=== PATIENT | male | born 2000 | race Caucasian/White ===

== ENCOUNTER 2024-12-27 14:11 | Inpatient (IN) | payer MEDICAID ==
[~2024-12-27] VITALS: Ht 172.7 cm; Wt 97.5 kg
[2024-12-27] MEDS ORDERED: CEFEPIME 1GM IN DEXT 5% 50ML IV ONE (14:30)
[2024-12-27] MEDS ORDERED: HYDROMORPHONE HCL/PF 2MG/ML INJ IV ONE ×2 (14:30→15:45)
[2024-12-27] MEDS: DIPHENHYDRAMINE 50MG/ML VIAL IV ONE ×2 (14:53→16:29)
[2024-12-27] MEDS: HYDROMORPHONE HCL/PF 1MG/ML INJ IV SCH (14:53)
[2024-12-27] MEDS: SODIUM CHLORIDE 0.9% (SEPSIS BOLUS) IV ONE (14:57)
[2024-12-27 15:17] LABS: BASOPHILS % 0.4 % (0.0-2.0); EOSINOPHILS % 1.0 % (0.0-5.0); HEMATOCRIT. 25.7 % (42.0-52.0); HEMOGLOBIN. 7.9 g/dL (14.0-18.0); LYMPHOCYTES % 13.2 % (20.0-50.0); MEAN PLATELET VOLUME 8.5 fl (7.4-10.4); MONOCYTES % 6.4 % (2.0-8.0); NEUTROPHILS % 79.0 % (40.0-76.0); PLATELET 173 x1000/uL (130-400); RED BLOOD CELL COUNT 3.26 mill/uL (4.7-6.1); RED CELL DISTRIBUTION WIDTH 24.3 % (11.6-14.6)
[2024-12-27 15:19] LABS: ADD RBC MORPHOLOGY YES
[2024-12-27 15:24] LABS: INR 1.0
[2024-12-27] MEDS: CEFEPIME 1GM PREMIX 50ML IV SCH (15:28)
[2024-12-27 15:37] LABS: CREATININE 1.1 mg/dL (0.6-1.3); UREA NITROGEN BLOOD 12 mg/dL (9-23)
[2024-12-27 15:39] LABS: ASPARTATE AMINOTRANSFERASE 12 IU/L (<34); BILIRUBIN DIRECT 0.1 mg/dL (<=3.0); BILIRUBIN TOTAL 0.5 mg/dL (0.1-1.0); PROTEIN TOTAL 5.6 g/dL (6.0-8.3); TROPONIN I HIGH SENSITIVITY < 4 ng/L (3.0-53)
[2024-12-27] MEDS: METHYLPREDNISOLONE SOD SUCC 125MG/2ML (ACT-O-VIAL) IV ONE (15:45)
[2024-12-27 16:03] LABS: PLATELET ESTIMATE NORMAL
[2024-12-27] MEDS: HYDROMORPHONE HCL/PF 1MG/ML INJ IV NR (16:27)
[2024-12-27] MEDS: VANCOMYCIN 1G PREMIX 200 ML IV ONE (16:32)
[2024-12-27 18:52] VITALS: BP 138/92; PULSE 83; RESP 20; TEMP 37.2; O2SAT 98
[2024-12-27 20:00] VITALS: BP 123/81; PULSE 97; RESP 17; TEMP 37; O2SAT 95
[2024-12-27] MEDS ORDERED: IPRATROPIUM/ALBUTEROL 0.5-3(2.5)MG/3ML NEB HHN PRN (20:15)
[2024-12-27] MEDS ORDERED: ACETAMINOPHEN 325MG TABLET PO PRN (20:15)
[2024-12-27] MEDS ORDERED: CLONIDINE 0.1MG TABLET PO PRN (20:15)
[2024-12-27] MEDS ORDERED: GUAIFENESIN 200MG/10ML SUGAR FREE UDC PO PRN (20:15)
[2024-12-27] MEDS ORDERED: ONDANSETRON HCL 4MG/2ML INJ IV PRN (20:15)
[2024-12-27] MEDS ORDERED: DOCUSATE SODIUM 100MG CAPSULE PO PRN (20:15)
[2024-12-27] MEDS ORDERED: NALOXONE HCL 0.4MG/ML VIAL IV PRN (20:30)
[2024-12-27] MEDS: DIPHENHYDRAMINE 50MG/ML VIAL IV PRN (20:35)
[2024-12-27] MEDS: HYDROMORPHONE HCL/PF 1MG/ML INJ IV PRN (20:36)
[2024-12-27] MEDS ORDERED: CEFEPIME 1GM IN DEXT 5% 50ML IV SCH (20:45)
[2024-12-27] MEDS: POTASSIUM CHLORIDE 20MEQ TABLET SR PO SCH (23:01)
[2024-12-27] MEDS: PANTOPRAZOLE SODIUM 40 MG/VIAL IV SCH (23:01)
[2024-12-27 23:18] LABS: TROPONIN I HIGH SENSITIVITY < 4 ng/L (3.0-53)
[2024-12-27 23:20] LABS: CREATININE 1.0 mg/dL (0.6-1.3); UREA NITROGEN BLOOD 15 mg/dL (9-23)
[2024-12-27] MEDS: LACTATED RINGERS 1,000 ML IV ONE (23:20)
[2024-12-27] MEDS: MAGNESIUM 1 G PREMIX 100 ML IV SCH (23:53)
[2024-12-28] VITALS (8 sets, daily range): BP systolic 119–141; BP diastolic 73–95; PULSE 66–97; RESP 16–20; TEMP 36.3–37; O2SAT 97–99
[2024-12-28] MEDS: CEFEPIME 2,000 MG in DEXT 5% WATER 100 ML IV SCH (01:22)
[2024-12-28] MEDS: DIPHENHYDRAMINE 50MG/ML VIAL IV PRN (03:17)
[2024-12-28] MEDS: VANCOMYCIN 1G PREMIX 200 ML IV SCH (03:32)
[2024-12-28] MEDS ORDERED: NON FORMULARY MED XX SCH (05:30)
[2024-12-28] MEDS ORDERED: VANCOMYCIN 750MG PREMIX 150 ML IV SCH (06:00)
[2024-12-28] MEDS ORDERED: IRON SUCROSE COMPLEX 100 MG/5 ML ML IV NR (06:45)
[2024-12-28] MEDS: IPRATROPIUM/ALBUTEROL 0.5-3(2.5)MG/3ML NEB HHN SCH (08:34)
[2024-12-28 08:40] LABS: CLARITY URINE CLEAR (CLEAR); COLOR URINE YELLOW (YELLOW); GLUCOSE URINE TRACE (NEGATIVE); KETONES URINE NEGATIVE (NEGATIVE); LEUKOCYTE ESTERASE URINE NEGATIVE (NEGATIVE); NITRITE URINE NEGATIVE (NEGATIVE); OCCULT BLOOD URINE NEGATIVE (NEGATIVE); PH URINE 7.0 (4.5-8.0); PROTEIN URINE NEGATIVE (NEGATIVE); SPECIFIC GRAVITY URINE 1.016 (1.005-1.030); UROBILINOGEN URINE 0.2 E.U./dL (0.2-1.0)
[2024-12-28] MEDS ORDERED: IRON SUCROSE COMPLEX 100 MG/5 ML ML IV SCH (09:00)
[2024-12-28 09:01] LABS: *AMPHETAMINES SCREEN URINE NEGATIVE (NEGATIVE)
[2024-12-28 09:02] LABS: *BARBITURATES SCREEN URINE NEGATIVE (NEGATIVE); *BENZODIAZEPINES SCREEN URINE NEGATIVE (NEGATIVE); *COCAINE SCREEN URINE NEGATIVE (NEGATIVE); CANNABINOID URINE SCREEN NEGATIVE (NEGATIVE); ECSTASY MDMA SCREEN URINE NEGATIVE (NEGATIVE); METHADONE URINE SCREEN NEGATIVE (NEGATIVE); OPIATES URINE SCREEN PRESUMPTIVE POSITIVE (NEGATIVE); PHENCYCLIDINE URINE SCREEN NEGATIVE (NEGATIVE)
[2024-12-28 09:26] LABS: MUCUS URINE TRACE /lpf (NONE/TRACE)
[2024-12-28 09:27] LABS: BACTERIA URINE NONE SEEN; RBC URINE NONE SEEN /hpf (0-2); SQUAMOUS EPITHELIAL CELL URINE NONE SEEN /lpf (RARE/1+); WBC URINE 0-2 /hpf (0-2)
[2024-12-28] MEDS: VANCOMYCIN 1.25GM/250ML 250 ML IV SCH (11:44)
[2024-12-28] MEDS: IRON SUCROSE COMPLEX 100 MG/5 ML ML IV SCH (21:37)
[2024-12-29] VITALS (8 sets, daily range): BP systolic 116–133; BP diastolic 75–90; PULSE 71–106; RESP 17–22; TEMP 34.9–36.5; O2SAT 96–100
[2024-12-29] MEDS: HYDROMORPHONE HCL/PF 2MG/ML INJ IV NR (02:32)
[2024-12-29 06:55] LABS: CREATININE 0.9 mg/dL (0.6-1.3); UREA NITROGEN BLOOD 17 mg/dL (9-23)
[2024-12-29 07:07] LABS: BASOPHILS % 0.1 % (0.0-2.0); EOSINOPHILS % 0.8 % (0.0-5.0); HEMATOCRIT. 25.1 % (42.0-52.0); HEMOGLOBIN. 7.9 g/dL (14.0-18.0); LYMPHOCYTES % 11.0 % (20.0-50.0); MEAN PLATELET VOLUME 8.9 fl (7.4-10.4); MONOCYTES % 9.1 % (2.0-8.0); NEUTROPHILS % 79.0 % (40.0-76.0); PLATELET 175 x1000/uL (130-400); RED BLOOD CELL COUNT 3.24 mill/uL (4.7-6.1); RED CELL DISTRIBUTION WIDTH 24.6 % (11.6-14.6)
[2024-12-29] MEDS ORDERED: NALOXONE HCL 0.4MG/ML VIAL IV PRN (09:45)
[2024-12-29] MEDS ORDERED: HYDROMORPHONE HCL/PF 1MG/ML INJ IV PRN (09:45)
[2024-12-29] MEDS: HYDROMORPHONE HCL/PF 2MG/ML INJ IV PRN (10:45)
[2024-12-29] MEDS: FERROUS SULFATE 325MG TABLET PO SCH (11:28)
[2024-12-29] MEDS: DIPHENHYDRAMINE 50MG/ML VIAL IV PRN (12:17)
[2024-12-29] MEDS: VANCOMYCIN 1.5GM/250ML 250 ML IV SCH (17:37)
[2024-12-29] MEDS ORDERED: VANCOMYCIN 1.5GM PMX (XELLIA) 300 ML IV SCH (18:00)
[2024-12-30] VITALS: BP 130/74; PULSE 104; RESP 16; TEMP 36.2; O2SAT 97
[2024-12-30 04:00] VITALS: BP 111/60; PULSE 89; RESP 17; TEMP 36.5; O2SAT 97
[2024-12-30 08:14] VITALS: PULSE 78; RESP 20
[2024-12-30 12:00] VITALS: BP 117/74; PULSE 96; RESP 18; TEMP 36.7; O2SAT 96
[2024-12-30] MEDS ORDERED: FERR-63 PO (14:24)
[2024-12-30 16:00] VITALS: BP 120/73; PULSE 94; RESP 18; TEMP 36.7; O2SAT 98
[2024-12-30 20:00] VITALS: BP 119/75; PULSE 111; RESP 16; TEMP 36.5; O2SAT 100
[2024-12-31] VITALS (8 sets, daily range): BP systolic 123–134; BP diastolic 68–86; PULSE 60–111; RESP 17–18; TEMP 36.1–37.4; O2SAT 94–99
[2024-12-31 03:35] LABS: CREATININE 1.1 mg/dL (0.6-1.3); UREA NITROGEN BLOOD 15 mg/dL (9-23)
[2024-12-31] MEDS ORDERED: VANCOMYCIN 1.5GM PMX (XELLIA) 300 ML IV SCH (06:00)
[2024-12-31] MEDS: VANCOMYCIN 1G PREMIX 200 ML IV SCH (12:02)
[2024-12-31] MEDS: VANCOMYCIN 500MG PREMIX 100 ML IV SCH (21:05)
[2025-01-01] VITALS: BP 126/76; PULSE 104; RESP 16; TEMP 35; O2SAT 97
[2025-01-01] MEDS: ACETAMINOPHEN 325MG TABLET PO PRN (03:57)
[2025-01-01 04:00] VITALS: BP 129/79; PULSE 65; RESP 18; TEMP 38.4; O2SAT 97
[2025-01-01 08:00] VITALS: BP 133/69; PULSE 104; RESP 18; TEMP 36.6; O2SAT 98
[2025-01-01 08:30] VITALS: PULSE 108; RESP 20
[2025-01-01 10:08] VITALS: BP 133/69; PULSE 104; TEMP 97.8; O2SAT 98
[2025-01-01 10:10] VITALS: BP 151/77; PULSE 122; RESP 18
[2025-01-01] MEDS ORDERED: VANCOMYCIN 1.5GM PMX (XELLIA) 300 ML IV SCH (21:00)
[2025-01-04] MEDS ORDERED: HYDR-4009 PO ×2 (10:50→18:32)
[2025-01-04] MEDS ORDERED: DIPH50CA41 PO (12:18)
[2025-01-04] MEDS ORDERED: TOPUD MT (14:27)
[2025-01-04] MEDS ORDERED: TOPUD PO (14:28)
[2025-01-04] MEDS ORDERED: HYDR-4009 MT (18:14)
== END 2025-01-01 11:45 | disposition home or self-care (01) | DRG 720 ==
LOC: ER 14:11 → EDBEDREQTM 17:29 → EDBEDREQ 17:29 → ENRESERV 17:54 → 5WST 18:30
PROVIDERS: ADMIT Internal Medicine; ATTEND Internal Medicine
PROC: 0JBP0ZZ Excision of Left Lower Leg Subcutaneous Tissue and Fascia, Open Approach (ICD-10-PCS; principal; 2024-12-29)
DX: A41.9 Sepsis, unspecified organism (principal); C78.01 Secondary malignant neoplasm of right lung; C78.5 Secondary malignant neoplasm of large intestine and rectum; J18.9 Pneumonia, unspecified organism; E87.0 Hyperosmolality and hypernatremia; K92.2 Gastrointestinal hemorrhage, unspecified; D50.9 Iron deficiency anemia, unspecified; C62.92 Malignant neoplasm of left testis, unspecified whether descended or undescended; E87.6 Hypokalemia; R73.9 Hyperglycemia, unspecified; G89.4 Chronic pain syndrome; F11.20 Opioid dependence, uncomplicated; Y95 Nosocomial condition; L29.9 Pruritus, unspecified; S80.812A Abrasion, left lower leg, initial encounter; S80.811A Abrasion, right lower leg, initial encounter; X58.XXXA Exposure to other specified factors, initial encounter; T45.1X5A Adverse effect of antineoplastic and immunosuppressive drugs, initial encounter; T45.515A Adverse effect of anticoagulants, initial encounter; Z85.47 Personal history of malignant neoplasm of testis; Z92.21 Personal history of antineoplastic chemotherapy; Z85.038 Personal history of other malignant neoplasm of large intestine; Z90.49 Acquired absence of other specified parts of digestive tract; Z86.711 Personal history of pulmonary embolism; Z86.718 Personal history of other venous thrombosis and embolism; Z92.3 Personal history of irradiation; Y92.89 Other specified places as the place of occurrence of the external cause; Y93.89 Activity, other specified; Y99.8 Other external cause status
CPT/HCPCS: 36415; 71045; 80048; 80076; 80202; 80305; 81003; 82550; 82728; 83036; 83540; 83550; 83605; 83735; 83880; 84145; 84484; 85025; 85379; 86850; 86900; 87070; 93005; 93970; 94070; 94640; 94664; 94760; 97165; 98960; 99291; A4606; J0692; J1171; J1200; J2470; J2919; J3370; J3475; J7030; J7060

== ENCOUNTER → 2025-01-09 | Emergency (ER) | payer MEDICAID ==
[~2025-01-09] VITALS: Ht 172.7 cm; Wt 91.0 kg
[~2025-01-09] MED LIST: DIPH50CA41 PO; FERR-63 PO; HYDR-4009 PO; HYDROMORPHONE HCL/PF 2MG/ML INJ IV ONE; TOPUD PO; VANCOMYCIN 1G PREMIX 200 ML IV ONE
[2025-01-09 14:25] VITALS: O2SAT 100
[2025-01-09] MEDS: SODIUM CHLORIDE 0.9% (SEPSIS BOLUS) IV ONE (15:00)
[2025-01-09] MEDS: DIPHENHYDRAMINE 50MG/ML VIAL IV ONE ×2 (15:29→17:46)
[2025-01-09] MEDS: PIPERACILLIN/TAZO 3.375G/50ML 50 ML IV ONE (15:29)
[2025-01-09] MEDS: HYDROMORPHONE HCL/PF 1MG/ML INJ IV SCH (15:30)
[2025-01-09 15:40] LABS: BASOPHILS % 0.5 % (0.0-2.0); EOSINOPHILS % 0.1 % (0.0-5.0); HEMATOCRIT. 23.7 % (42.0-52.0); HEMOGLOBIN. 7.5 g/dL (14.0-18.0); LYMPHOCYTES % 11.2 % (20.0-50.0); MEAN PLATELET VOLUME 7.7 fl (7.4-10.4); MONOCYTES % 10.0 % (2.0-8.0); NEUTROPHILS % 78.2 % (40.0-76.0); PLATELET 173 x1000/uL (130-400); RED BLOOD CELL COUNT 2.93 mill/uL (4.7-6.1); RED CELL DISTRIBUTION WIDTH 26.1 % (11.6-14.6)
[2025-01-09 15:42] LABS: ADD RBC MORPHOLOGY YES
[2025-01-09 15:47] LABS: INR 1.0
[2025-01-09 15:56] LABS: CREATININE 1.0 mg/dL (0.6-1.3); TROPONIN I HIGH SENSITIVITY < 4 ng/L (3.0-53); UREA NITROGEN BLOOD 22 mg/dL (9-23)
[2025-01-09 15:58] LABS: ASPARTATE AMINOTRANSFERASE 12 IU/L (<34); BILIRUBIN DIRECT < 0.1 mg/dL (<=3.0)
[2025-01-09 15:59] LABS: BILIRUBIN TOTAL 0.3 mg/dL (0.1-1.0); PROTEIN TOTAL 5.8 g/dL (6.0-8.3)
[2025-01-09 16:38] LABS: PLATELET ESTIMATE NORMAL
[2025-01-09 16:49] VITALS: TEMP 36.7; O2SAT 100
[2025-01-09 17:46] VITALS: BP 133/85; PULSE 76; RESP 15
[2025-01-09] MEDS: HYDROMORPHONE HCL/PF 2MG/ML INJ IV ONE (17:46)
== END | disposition left against medical advice (07) ==
LOC: ER 14:18 → EDBEDREQ 17:03 → ENRESERV 17:08 → CANBEDREQ 17:29
DX: C78.00 Secondary malignant neoplasm of unspecified lung (principal); G89.4 Chronic pain syndrome; D64.9 Anemia, unspecified; C62.90 Malignant neoplasm of unspecified testis, unspecified whether descended or undescended; Z88.6 Allergy status to analgesic agent; Z88.5 Allergy status to narcotic agent; Z88.8 Allergy status to other drugs, medicaments and biological substances; Z79.899 Other long term (current) drug therapy; Z98.890 Other specified postprocedural states
CPT/HCPCS: 80076; 80048; 83880; 83605; 85025; 85610; 86850; 86900; 86901; 87040; 84484; 36415; 84145; 71045; 93005; 96365; 96375; 96376; 99291; J1200; J2543; J1171; J7030; Z7610

== ENCOUNTER 2025-01-13 14:57 | Inpatient (IN) | payer MEDICAID ==
[~2025-01-13] VITALS: Ht 172.7 cm; Wt 92.1 kg
[~2025-01-13 14:57] MED LIST changes: -HYDROMORPHONE HCL/PF 2MG/ML INJ IV ONE; -VANCOMYCIN 1G PREMIX 200 ML IV ONE
[2025-01-13] MEDS ORDERED: HYDROMORPHONE HCL/PF 2MG/ML INJ IV ONE (15:15)
[2025-01-13 15:45] LABS: BASOPHILS % 0.5 % (0.0-2.0); EOSINOPHILS % 0.3 % (0.0-5.0); HEMATOCRIT. 25.2 % (42.0-52.0); HEMOGLOBIN. 7.9 g/dL (14.0-18.0); LYMPHOCYTES % 9.6 % (20.0-50.0); MEAN PLATELET VOLUME 7.3 fl (7.4-10.4); MONOCYTES % 8.6 % (2.0-8.0); NEUTROPHILS % 81.0 % (40.0-76.0); PLATELET 188 x1000/uL (130-400); RED BLOOD CELL COUNT 3.08 mill/uL (4.7-6.1); RED CELL DISTRIBUTION WIDTH 27.2 % (11.6-14.6)
[2025-01-13 15:47] LABS: ADD RBC MORPHOLOGY YES
[2025-01-13] MEDS: HYDROMORPHONE HCL/PF 1MG/ML INJ IV SCH (15:53)
[2025-01-13 16:01] LABS: CREATININE 1.1 mg/dL (0.6-1.3); UREA NITROGEN BLOOD 17 mg/dL (9-23)
[2025-01-13 16:03] LABS: TROPONIN I HIGH SENSITIVITY < 4 ng/L (3.0-53)
[2025-01-13] MEDS: DIPHENHYDRAMINE 50MG/ML VIAL IV ONE (16:04)
[2025-01-13 16:23] LABS: PLATELET ESTIMATE NORMAL
[2025-01-13] MEDS: INSULIN LISPRO 100 UNITS/ML SUBCUT SCH (17:20)
[2025-01-13] MEDS ORDERED: ACETAMINOPHEN 325MG TABLET PO PRN ×2 (17:30)
[2025-01-13] MEDS ORDERED: IPRATROPIUM/ALBUTEROL 0.5-3(2.5)MG/3ML NEB HHN PRN (17:30)
[2025-01-13] MEDS ORDERED: ENOXAPARIN 40MG/0.4ML SYR SUBCUT SCH (17:30)
[2025-01-13] MEDS ORDERED: HYDROMORPHONE HCL/PF 2MG/ML INJ IV PRN (17:30)
[2025-01-13] MEDS ORDERED: ONDANSETRON HCL 4MG/2ML INJ IV PRN (17:30)
[2025-01-13] MEDS ORDERED: DEXTROSE 50% WATER 50ML SYRINGE IV PRN (17:30)
[2025-01-13] MEDS ORDERED: CLONIDINE 0.1MG TABLET PO PRN (17:30)
[2025-01-13] MEDS ORDERED: NALOXONE HCL 0.4MG/ML VIAL IV PRN (17:45)
[2025-01-13] MEDS: DIPHENHYDRAMINE 50MG/ML VIAL IV PRN (18:00)
[2025-01-13] MEDS: POTASSIUM CHLORIDE 20MEQ/PACKET PO SCH (18:01)
[2025-01-13] MEDS: HYDROMORPHONE HCL/PF 2MG/ML INJ IV PRN (18:01)
[2025-01-13] MEDS: DEXTROSE 5% WATER 1,000 ML IV SCH (18:02)
[2025-01-13 18:35] VITALS: BP 127/82; PULSE 85; RESP 15; TEMP 36.8628
[2025-01-13 20:00] VITALS: BP 118/79; PULSE 86; RESP 16; TEMP 36.9; O2SAT 98
[2025-01-13] MEDS: BLOOD SUGAR DIAGNOSTIC STRIP TEST SCH (21:00)
[2025-01-14] VITALS: BP 121/84; PULSE 89; RESP 18; TEMP 36.8; O2SAT 99
[2025-01-14 03:45] LABS: TROPONIN I HIGH SENSITIVITY < 4 ng/L (3.0-53)
[2025-01-14 04:00] VITALS: BP 111/75; PULSE 77; RESP 16; TEMP 36.8; O2SAT 97
[2025-01-14 07:27] LABS: BASOPHILS % 0.4 % (0.0-2.0); EOSINOPHILS % 1.6 % (0.0-5.0); HEMATOCRIT. 24.6 % (42.0-52.0); HEMOGLOBIN. 7.6 g/dL (14.0-18.0); LYMPHOCYTES % 11.6 % (20.0-50.0); MEAN PLATELET VOLUME 7.7 fl (7.4-10.4); MONOCYTES % 8.7 % (2.0-8.0); NEUTROPHILS % 77.7 % (40.0-76.0); PLATELET 175 x1000/uL (130-400); RED BLOOD CELL COUNT 3.01 mill/uL (4.7-6.1); RED CELL DISTRIBUTION WIDTH 26.7 % (11.6-14.6)
[2025-01-14 07:33] LABS: CREATININE 0.7 mg/dL (0.6-1.3); UREA NITROGEN BLOOD 15 mg/dL (9-23)
[2025-01-14 08:00] VITALS: BP 112/79; PULSE 86; RESP 18; TEMP 36.8; O2SAT 94
[2025-01-14] MEDS: POTASSIUM CHLORIDE 20MEQ/PACKET PO SCH (08:10)
[2025-01-14 12:00] VITALS: BP 119/81; PULSE 90; RESP 15; TEMP 36.7; O2SAT 95
[2025-01-14 16:00] VITALS: BP 120/85; PULSE 95; RESP 18; TEMP 36.7; O2SAT 99
[2025-01-14] MEDS: DIPHENHYDRAMINE 50MG/ML VIAL IV PRN (19:49)
[2025-01-14] MEDS: HYDROMORPHONE HCL/PF 2MG/ML INJ IV PRN (19:51)
[2025-01-14 20:00] VITALS: BP 123/75; PULSE 90; RESP 17; TEMP 37; O2SAT 98
[2025-01-15] VITALS: BP 117/77; PULSE 92; RESP 20; TEMP 36.8; O2SAT 92
[2025-01-15 04:00] VITALS: BP 120/76; PULSE 90; RESP 18; TEMP 36.8; O2SAT 96
[2025-01-15 08:00] VITALS: BP 124/87; PULSE 97; RESP 15; TEMP 36.9; O2SAT 95
[2025-01-15 08:04] VITALS: BP 124/87; PULSE 97; TEMP 98.4; O2SAT 95
[2025-01-15 12:11] VITALS: BP 113/80; PULSE 95; RESP 17
[2025-01-15] MEDS: SILVER SULFADIAZINE 1% CREAM 50GM TOP SCH (12:11)
== END 2025-01-15 13:03 | disposition home or self-care (01) | DRG 240 ==
LOC: ER 14:57 → EDBEDREQ 16:38 → EDBEDREQTM 16:38 → ENRESERV 17:02 → 3WST 17:16
PROVIDERS: ADMIT Hospitalist; ATTEND Hospitalist
DX: C18.9 Malignant neoplasm of colon, unspecified (principal); E87.0 Hyperosmolality and hypernatremia; C78.01 Secondary malignant neoplasm of right lung; G62.0 Drug-induced polyneuropathy; D50.9 Iron deficiency anemia, unspecified; F11.20 Opioid dependence, uncomplicated; C62.92 Malignant neoplasm of left testis, unspecified whether descended or undescended; E87.6 Hypokalemia; G89.4 Chronic pain syndrome; L29.9 Pruritus, unspecified; T45.1X5A Adverse effect of antineoplastic and immunosuppressive drugs, initial encounter; R06.02 Shortness of breath; Z85.038 Personal history of other malignant neoplasm of large intestine; Z85.47 Personal history of malignant neoplasm of testis; Z86.711 Personal history of pulmonary embolism; Z86.718 Personal history of other venous thrombosis and embolism; Z88.6 Allergy status to analgesic agent; Z90.49 Acquired absence of other specified parts of digestive tract; Z92.3 Personal history of irradiation; Z91.041 Radiographic dye allergy status; Y92.89 Other specified places as the place of occurrence of the external cause
CPT/HCPCS: 36415; 71045; 80048; 82962; 83036; 83880; 84484; 85025; 93005; 99285; A4606; J1171; J1200; J7070

== ENCOUNTER 2025-02-08 13:15 | Inpatient (IN) | payer SELFPAY ==
[~2025-02-08] VITALS: Ht 172.7 cm; Wt 89.8 kg
[2025-02-08 07:30] VITALS: BP 123/86; PULSE 90; RESP 18; TEMP 36.6404
[2025-02-08 13:19] VITALS: O2SAT 98
[2025-02-08 15:23] LABS: CREATININE 0.8 mg/dL (0.6-1.3); HEMATOCRIT. 29.2 % (42.0-52.0); HEMOGLOBIN. 9.1 g/dL (14.0-18.0); MEAN PLATELET VOLUME 7.9 fl (7.4-10.4); PLATELET 210 x1000/uL (130-400); RED BLOOD CELL COUNT 3.62 mill/uL (4.7-6.1); RED CELL DISTRIBUTION WIDTH 24.9 % (11.6-14.6); TROPONIN I HIGH SENSITIVITY < 4 ng/L (3.0-53); UREA NITROGEN BLOOD 19 mg/dL (9-23)
[2025-02-08 15:25] LABS: ASPARTATE AMINOTRANSFERASE 15 IU/L (<34); BILIRUBIN DIRECT < 0.1 mg/dL (<=3.0); BILIRUBIN TOTAL 0.4 mg/dL (0.1-1.0); PROTEIN TOTAL 5.6 g/dL (6.0-8.3)
[2025-02-08 15:27] LABS: INR 0.9
[2025-02-08] MEDS: SODIUM CHLORIDE 0.9% 1,000 ML IV ONE (16:13)
[2025-02-08] MEDS: HYDROMORPHONE HCL/PF 2MG/ML INJ IV ONE (16:16)
[2025-02-08 16:38] LABS: BAND% 4.0 % (1.0-6.0); EOSINOPHILS % MANUAL 1.0 % (0.0-5.0); LYMPHOCYTES % MANUAL 9.0 % (20.0-50.0); MONOCYTES % MANUAL 12.0 % (2.0-8.0); NEUTROPHILS % MANUAL 74.0 % (45.0-75.0)
[2025-02-08 16:39] LABS: PLATELET ESTIMATE NORMAL
[2025-02-08] MEDS ORDERED: CLONIDINE 0.1MG TABLET PO PRN (17:15)
[2025-02-08] MEDS ORDERED: ONDANSETRON HCL 4MG/2ML INJ IV PRN (17:15)
[2025-02-08] MEDS ORDERED: DOCUSATE SODIUM 100MG CAPSULE PO PRN (17:15)
[2025-02-08] MEDS ORDERED: ACETAMINOPHEN 650MG/20.3ML UDC GT PRN ×2 (17:15)
[2025-02-08] MEDS ORDERED: IPRATROPIUM/ALBUTEROL 0.5-3(2.5)MG/3ML NEB HHN PRN (17:15)
[2025-02-08] MEDS ORDERED: MAGNESIUM/ALUMINUM HYDROXIDE/SIMETHICONE 30ML UDC PO PRN (17:15)
[2025-02-08] MEDS ORDERED: GUAIFENESIN 200MG/10ML SUGAR FREE UDC PO PRN (17:15)
[2025-02-08] MEDS ORDERED: ACETAMINOPHEN 325MG TABLET PO PRN (17:45)
[2025-02-08] MEDS ORDERED: FAMOTIDINE 20MG TABLET PO SCH (18:00)
[2025-02-08] MEDS ORDERED: METHYLPREDNISOLONE SOD SUCC 40MG/ML (ACT-O-VIAL) IV SCH (18:00)
[2025-02-08] MEDS ORDERED: NALOXONE HCL 0.4MG/ML VIAL IV PRN (18:00)
[2025-02-08] MEDS ORDERED: IPRATROPIUM/ALBUTEROL 0.5-3(2.5)MG/3ML NEB HHN SCH (18:00)
[2025-02-08 19:06] LABS: FOLIC ACID (FOLATE) SERUM 17.13 ng/mL (>5.38); VITAMIN B12 SERUM 220 pg/mL (211-911)
[2025-02-08 19:30] VITALS: BP 123/86; PULSE 90; RESP 18; TEMP 36.6404
[2025-02-08 19:38] LABS: PHOSPHORUS 2.4 mg/dL (2.5-4.9)
[2025-02-08] MEDS: HYDROMORPHONE HCL/PF 1MG/ML INJ IV PRN (19:46)
[2025-02-08] MEDS: DIPHENHYDRAMINE 50MG/ML VIAL IV PRN (19:59)
[2025-02-09] VITALS: BP 105/70; PULSE 90; RESP 20; TEMP 36.8; O2SAT 98
[2025-02-09 00:45] LABS: CREATINE KINASE MB FRACTION < 0.5 ng/mL (0.5-3.6); TROPONIN I HIGH SENSITIVITY < 4 ng/L (3.0-53)
[2025-02-09 04:00] VITALS: BP 103/66; PULSE 94; RESP 20; TEMP 36.8; O2SAT 100
[2025-02-09 08:00] VITALS: BP 122/80; PULSE 89; RESP 18; TEMP 37.2; O2SAT 98
[2025-02-09] MEDS: FERROUS SULFATE 325MG TABLET PO SCH (08:10)
[2025-02-09] MEDS: PANTOPRAZOLE SODIUM 40 MG/VIAL IV SCH (08:10)
[2025-02-09 11:31] LABS: HEMATOCRIT. 27.9 % (42.0-52.0); HEMOGLOBIN. 8.9 g/dL (14.0-18.0); MEAN PLATELET VOLUME 8.1 fl (7.4-10.4); PLATELET 192 x1000/uL (130-400); RED BLOOD CELL COUNT 3.52 mill/uL (4.7-6.1); RED CELL DISTRIBUTION WIDTH 24.4 % (11.6-14.6)
[2025-02-09 12:00] VITALS: BP 115/74; PULSE 76; RESP 17; TEMP 36.4; O2SAT 97
[2025-02-09 12:13] LABS: CREATINE KINASE MB FRACTION < 0.5 ng/mL (0.5-3.6); CREATININE 0.9 mg/dL (0.6-1.3); TRIGLYCERIDE 227 mg/dL (0-150); TROPONIN I HIGH SENSITIVITY < 4 ng/L (3.0-53); UREA NITROGEN BLOOD 17 mg/dL (9-23)
[2025-02-09 12:14] LABS: LDL CHOLESTEROL 135 mg/dL (5-100)
[2025-02-09 12:18] LABS: T4 FREE 1.12 ng/dL (0.89-1.76)
[2025-02-09 13:24] VITALS: BP 122/76; PULSE 81; RESP 18; TEMP 97.8
[2025-02-09 14:20] VITALS: BP 116/68; PULSE 88; RESP 18
[2025-02-09] MEDS: POTASSIUM CHLORIDE 20MEQ TABLET SR PO SCH (14:20)
[2025-02-09 18:16] LABS: EOSINOPHILS % MANUAL 3.0 % (0.0-5.0); LYMPHOCYTES % MANUAL 8.0 % (20.0-50.0); MONOCYTES % MANUAL 7.0 % (2.0-8.0); NEUTROPHILS % MANUAL 82.0 % (45.0-75.0); PLATELET ESTIMATE NORMAL
[2025-02-09 19:51] LABS: ASPARTATE AMINOTRANSFERASE 17 IU/L (<34); BILIRUBIN DIRECT 0.1 mg/dL (<=3.0); BILIRUBIN TOTAL 0.5 mg/dL (0.1-1.0); PROTEIN TOTAL 5.5 g/dL (6.0-8.3)
== END 2025-02-09 15:24 | disposition home or self-care (01) | DRG 144 ==
LOC: ER 13:15 → EDBEDREQTM 17:07 → EDBEDREQ 17:07 → 8WST 19:21
PROVIDERS: ADMIT Hospitalist; ATTEND Hospitalist
DX: J70.4 Drug-induced interstitial lung disorders, unspecified (principal); C78.01 Secondary malignant neoplasm of right lung; C78.5 Secondary malignant neoplasm of large intestine and rectum; D64.9 Anemia, unspecified; E66.9 Obesity, unspecified; C62.90 Malignant neoplasm of unspecified testis, unspecified whether descended or undescended; G89.4 Chronic pain syndrome; T78.40XA Allergy, unspecified, initial encounter; T45.1X5A Adverse effect of antineoplastic and immunosuppressive drugs, initial encounter; Y92.89 Other specified places as the place of occurrence of the external cause; Z86.718 Personal history of other venous thrombosis and embolism; Z90.2 Acquired absence of lung [part of]; Z88.6 Allergy status to analgesic agent; Z91.041 Radiographic dye allergy status; Z88.5 Allergy status to narcotic agent; Z92.3 Personal history of irradiation; Z68.30 Body mass index [BMI] 30.0-30.9, adult
CPT/HCPCS: 36415; 71045; 80048; 80061; 80076; 82550; 82553; 82607; 82728; 82746; 83540; 83550; 83735; 83880; 84100; 84439; 84443; 84484; 85025; 85044; 85379; 93005; 99291; A4606; J1171; J1200; J2470; J7030

== ENCOUNTER 2025-02-11 09:58 | Inpatient (IN) | payer SELFPAY ==
[~2025-02-11] VITALS: Ht 172.7 cm; Wt 88.5 kg
[2025-02-11 10:00] VITALS: O2SAT 99
[2025-02-11] MEDS ORDERED: HYDROMORPHONE HCL/PF 2MG/ML INJ IV ONE ×2 (10:15→12:15)
[2025-02-11 10:37] LABS: BASOPHILS % 0.6 % (0.0-2.0); EOSINOPHILS % 0.4 % (0.0-5.0); HEMATOCRIT. 31.1 % (42.0-52.0); HEMOGLOBIN. 9.7 g/dL (14.0-18.0); LYMPHOCYTES % 9.2 % (20.0-50.0); MEAN PLATELET VOLUME 8.0 fl (7.4-10.4); MONOCYTES % 5.4 % (2.0-8.0); NEUTROPHILS % 84.4 % (40.0-76.0); PLATELET 235 x1000/uL (130-400); RED BLOOD CELL COUNT 3.89 mill/uL (4.7-6.1); RED CELL DISTRIBUTION WIDTH 23.9 % (11.6-14.6)
[2025-02-11] MEDS: DIPHENHYDRAMINE 50MG/ML VIAL IV ONE (10:48)
[2025-02-11] MEDS: ONDANSETRON HCL 4MG/2ML INJ IV ONE (10:48)
[2025-02-11] MEDS: PANTOPRAZOLE SODIUM 40 MG/VIAL IV ONE (10:48)
[2025-02-11] MEDS: METHYLPREDNISOLONE SOD SUCC 125MG/2ML (ACT-O-VIAL) IV ONE (10:49)
[2025-02-11 10:52] LABS: ADD RBC MORPHOLOGY YES
[2025-02-11 10:55] LABS: CREATININE 1.0 mg/dL (0.6-1.3); UREA NITROGEN BLOOD 15 mg/dL (9-23)
[2025-02-11 10:56] LABS: TROPONIN I HIGH SENSITIVITY < 4 ng/L (3.0-53)
[2025-02-11 10:57] LABS: ASPARTATE AMINOTRANSFERASE 14 IU/L (<34); BILIRUBIN DIRECT < 0.1 mg/dL (<=3.0); BILIRUBIN TOTAL 0.4 mg/dL (0.1-1.0); PROTEIN TOTAL 6.3 g/dL (6.0-8.3)
[2025-02-11] MEDS: HYDROMORPHONE HCL/PF 1MG/ML INJ IV NR (11:17)
[2025-02-11] MEDS: LACTATED RINGERS 500 ML IV SCH (11:38)
[2025-02-11] MEDS: PANTOPRAZOLE 80 MG in SODIUM CHLORIDE 0.9% 100 ML IV SCH (12:20)
[2025-02-11] MEDS: HYDROMORPHONE HCL/PF 1MG/ML INJ IV SCH (12:21)
[2025-02-11 14:00] VITALS: BP 116/81; PULSE 99; RESP 15; TEMP 36.7; O2SAT 100
[2025-02-11] MEDS ORDERED: MORPHINE SULFATE 2 MG/ML INJ (NOT FOR IM USE) IV PRN (14:00)
[2025-02-11] MEDS ORDERED: IOHEXOL-350 100 ML BOTTLE ONE (14:04)
[2025-02-11 14:15] LABS: PLATELET ESTIMATE NORMAL
[2025-02-11] MEDS: HYDROMORPHONE HCL/PF 1MG/ML INJ IV PRN (14:22)
[2025-02-11 14:36] VITALS: BP 115/88; PULSE 98; RESP 16; TEMP 35.584; TEMP 35.5840
== END 2025-02-11 15:04 | disposition left against medical advice (07) | DRG 145 ==
LOC: ER 09:58 → 5EST 11:16 → EDBEDREQ 11:25 → EDBEDREQSVC 11:25 → ENRESERV 11:45
PROVIDERS: ADMIT Internal Medicine; ATTEND Internal Medicine
DX: R06.02 Shortness of breath (principal); Z53.29 Procedure and treatment not carried out because of patient's decision for other reasons; Z85.118 Personal history of other malignant neoplasm of bronchus and lung; Z85.47 Personal history of malignant neoplasm of testis; Z86.718 Personal history of other venous thrombosis and embolism; Z90.2 Acquired absence of lung [part of]; Z92.21 Personal history of antineoplastic chemotherapy; Z91.041 Radiographic dye allergy status
CPT/HCPCS: 36415; 71045; 71275; 74177; 80048; 80076; 83880; 84484; 85025; 86850; 86900; 93005; 99291; J1171; J1200; J2405; J2470; J2919; J7050; Q9967

== ENCOUNTER 2025-02-21 10:19 | Inpatient (IN) | payer SELFPAY ==
[~2025-02-21] VITALS: Ht 172.7 cm; Wt 83.9 kg
[2025-02-21 10:22] VITALS: O2SAT 99
[2025-02-21 11:13] LABS: BASOPHILS % 0.4 % (0.0-2.0); EOSINOPHILS % 0.6 % (0.0-5.0); HEMATOCRIT. 23.6 % (42.0-52.0); HEMOGLOBIN. 7.3 g/dL (14.0-18.0); LYMPHOCYTES % 11.9 % (20.0-50.0); MEAN PLATELET VOLUME 8.2 fl (7.4-10.4); MONOCYTES % 11.9 % (2.0-8.0); NEUTROPHILS % 75.2 % (40.0-76.0); PLATELET 213 x1000/uL (130-400); RED BLOOD CELL COUNT 2.90 mill/uL (4.7-6.1); RED CELL DISTRIBUTION WIDTH 23.1 % (11.6-14.6)
[2025-02-21 11:14] LABS: ADD RBC MORPHOLOGY YES
[2025-02-21] MEDS ORDERED: HYDROMORPHONE HCL/PF 2MG/ML INJ IV ONE (11:15)
[2025-02-21] MEDS ORDERED: HYDROMORPHONE HCL/PF 1MG/ML INJ IV NR (11:15)
[2025-02-21] MEDS: ONDANSETRON HCL 4MG/2ML INJ IV ONE (11:23)
[2025-02-21 11:26] LABS: CREATININE 1.1 mg/dL (0.6-1.3); UREA NITROGEN BLOOD 19 mg/dL (9-23)
[2025-02-21 11:46] LABS: PLATELET ESTIMATE NORMAL
[2025-02-21] MEDS ORDERED: ACETAMINOPHEN 325MG TABLET PO PRN ×2 (12:00)
[2025-02-21] MEDS ORDERED: IPRATROPIUM/ALBUTEROL 0.5-3(2.5)MG/3ML NEB HHN PRN (12:00)
[2025-02-21] MEDS ORDERED: CEFEPIME 1GM IN DEXT 5% 50ML IV SCH (12:00)
[2025-02-21] MEDS ORDERED: GUAIFENESIN 200MG/10ML SUGAR FREE UDC PO PRN (12:00)
[2025-02-21] MEDS ORDERED: ONDANSETRON HCL 4MG/2ML INJ IV PRN (12:00)
[2025-02-21] MEDS ORDERED: CLONIDINE 0.1MG TABLET PO PRN (12:00)
[2025-02-21] MEDS ORDERED: HYDROMORPHONE HCL/PF 2MG/ML INJ IV PRN (12:00)
[2025-02-21] MEDS ORDERED: ENOXAPARIN 40MG/0.4ML SYR SUBCUT SCH (12:39)
[2025-02-21] MEDS ORDERED: NALOXONE HCL 0.4MG/ML VIAL IV PRN (12:45)
[2025-02-21 13:04] LABS: ETHANOL BLOOD < 10 mg/dL (<10)
[2025-02-21 13:05] LABS: PHOSPHORUS 2.1 mg/dL (2.5-4.9)
[2025-02-21 13:08] LABS: T4 FREE 0.90 ng/dL (0.89-1.76)
[2025-02-21] MEDS: DIPHENHYDRAMINE 50MG/ML VIAL IV PRN (13:56)
[2025-02-21] MEDS: PANTOPRAZOLE SODIUM 40 MG/VIAL IV SCH (13:57)
[2025-02-21] MEDS: HYDROMORPHONE HCL/PF 1MG/ML INJ IV PRN (13:57)
[2025-02-21] MEDS: LACTATED RINGERS 1,000 ML IV ONE (14:57)
[2025-02-21] MEDS: CEFEPIME 2GM/100ML 100 ML IV SCH (14:57)
[2025-02-21 15:58] LABS: CREATININE 1.0 mg/dL (0.6-1.3); UREA NITROGEN BLOOD 18 mg/dL (9-23)
[2025-02-21 15:59] LABS: CREATINE KINASE MB FRACTION < 0.5 ng/mL (0.5-3.6); TROPONIN I HIGH SENSITIVITY < 4 ng/L (3.0-53)
[2025-02-21 16:00] VITALS: BP 128/77; PULSE 82; RESP 15; TEMP 36.8; O2SAT 100
[2025-02-21 16:00] LABS: ASPARTATE AMINOTRANSFERASE 13 IU/L (<34)
[2025-02-21 16:01] LABS: BILIRUBIN TOTAL 0.5 mg/dL (0.1-1.0); PROTEIN TOTAL 5.5 g/dL (6.0-8.3)
[2025-02-21] MEDS: POTASSIUM PHOSPHATE 15 MMOL in DEXT 5% WATER 245 ML IV SCH (16:46)
[2025-02-21 18:40] VITALS: BP 143/78; PULSE 79; RESP 16; TEMP 36.7516
[2025-02-21 20:00] VITALS: BP 110/68; PULSE 95; RESP 17; TEMP 36.7; O2SAT 96
[2025-02-21] MEDS ORDERED: ZOLPIDEM TARTRATE 5MG TABLET PO PRN (21:00)
[2025-02-21 23:56] LABS: CREATINE KINASE MB FRACTION < 0.5 ng/mL (0.5-3.6); TROPONIN I HIGH SENSITIVITY < 4 ng/L (3.0-53)
[2025-02-22] VITALS: BP 112/72; PULSE 87; RESP 18; TEMP 36.9; O2SAT 98
[2025-02-22] MEDS: VANCOMYCIN 1.5GM PMX (XELLIA) 300 ML IV NR (00:20)
[2025-02-22 04:00] VITALS: BP 108/64; PULSE 77; RESP 16; TEMP 36.4; O2SAT 96
[2025-02-22] MEDS ORDERED: VANCOMYCIN 1.25GM PMX (XELLIA) 250 ML IV SCH (06:00)
[2025-02-22 08:00] VITALS: BP 119/72; PULSE 80; RESP 16; TEMP 36.5; O2SAT 100
[2025-02-22] MEDS: VANCOMYCIN 1.25GM/250ML 250 ML IV SCH (08:06)
[2025-02-22] MEDS ORDERED: DIPHENHYDRAMINE 50MG CAPSULE PO PRN (10:00)
[2025-02-22 12:00] VITALS: BP 131/85; PULSE 80; RESP 16; TEMP 36.7; O2SAT 100
[2025-02-22] MEDS ORDERED: HYDROMORPHONE HCL 2MG TABLET PO PRN (14:00)
[2025-02-22] MEDS: HYDROMORPHONE HCL/PF 2MG/ML INJ IV PRN (14:07)
[2025-02-22] MEDS: DOCUSATE SODIUM 100MG CAPSULE PO SCH (14:08)
[2025-02-22 16:00] VITALS: BP 119/80; PULSE 80; RESP 16; TEMP 36.7; O2SAT 100
[2025-02-22 20:00] VITALS: BP 116/80; PULSE 92; RESP 18; TEMP 36.9; O2SAT 99
[2025-02-22] MEDS: NEOMY SULF/BACITRAC ZN/POLY OINT 28GM TOP SCH (20:38)
[2025-02-22 21:10] LABS: PLATELET 213 x1000/uL (130-400); RED BLOOD CELL COUNT 3.01 mill/uL (4.7-6.1); RED CELL DISTRIBUTION WIDTH 22.9 % (11.6-14.6)
[2025-02-22 21:24] LABS: CREATININE 1.1 mg/dL (0.6-1.3)
[2025-02-22 21:25] LABS: UREA NITROGEN BLOOD 11 mg/dL (9-23)
[2025-02-22 21:27] LABS: PHOSPHORUS 3.4 mg/dL (2.5-4.9)
[2025-02-23] VITALS: BP 110/83; PULSE 89; RESP 18; TEMP 36.4; O2SAT 100
[2025-02-23 04:00] VITALS: BP 111/72; PULSE 97; RESP 18; TEMP 36.8; O2SAT 95
[2025-02-23 06:55] LABS: BASOPHILS % 0.7 % (0.0-2.0); EOSINOPHILS % 3.7 % (0.0-5.0); HEMATOCRIT. 23.4 % (42.0-52.0); HEMOGLOBIN. 7.4 g/dL (14.0-18.0); LYMPHOCYTES % 11.3 % (20.0-50.0); MEAN PLATELET VOLUME 8.0 fl (7.4-10.4); MONOCYTES % 8.9 % (2.0-8.0); NEUTROPHILS % 75.4 % (40.0-76.0); PLATELET 197 x1000/uL (130-400); RED BLOOD CELL COUNT 2.95 mill/uL (4.7-6.1); RED CELL DISTRIBUTION WIDTH 22.3 % (11.6-14.6)
[2025-02-23 07:20] LABS: CREATININE 1.0 mg/dL (0.6-1.3)
[2025-02-23 07:21] LABS: UREA NITROGEN BLOOD 11 mg/dL (9-23)
[2025-02-23 08:00] VITALS: BP 128/84; PULSE 99; RESP 18; TEMP 35.8; O2SAT 99
[2025-02-23] MEDS: POTASSIUM CHLORIDE 20MEQ/PACKET PO NR (08:51)
[2025-02-23] MEDS: POTASSIUM CHLORIDE 20MEQ TABLET SR PO NR (08:51)
[2025-02-23] MEDS ORDERED: NEOM28OI53 TOP (11:39)
[2025-02-23 15:00] VITALS: BP 123/79; PULSE 98; RESP 18; TEMP 36.9; O2SAT 98
[2025-02-23 17:02] VITALS: BP 123/79; PULSE 110; RESP 16; TEMP 98.4
== END 2025-02-23 17:11 | disposition home or self-care (01) | DRG 384 ==
LOC: ER 10:19 → 5WST 11:42 → EDBEDREQTM 11:44 → EDBEDREQ 11:44 → ENRESERV 12:02
PROVIDERS: ADMIT Internal Medicine; ATTEND Internal Medicine
DX: S40.811A Abrasion of right upper arm, initial encounter (principal); E87.20 Acidosis, unspecified; E87.0 Hyperosmolality and hypernatremia; D63.8 Anemia in other chronic diseases classified elsewhere; E83.39 Other disorders of phosphorus metabolism; T81.89XA Other complications of procedures, not elsewhere classified, initial encounter; S40.812A Abrasion of left upper arm, initial encounter; S30.811A Abrasion of abdominal wall, initial encounter; G62.82 Radiation-induced polyneuropathy; C18.9 Malignant neoplasm of colon, unspecified; C62.92 Malignant neoplasm of left testis, unspecified whether descended or undescended; C34.91 Malignant neoplasm of unspecified part of right bronchus or lung; G89.4 Chronic pain syndrome; E05.90 Thyrotoxicosis, unspecified without thyrotoxic crisis or storm; E87.6 Hypokalemia; Y84.2 Radiological procedure and radiotherapy as the cause of abnormal reaction of the patient, or of later complication, without mention of misadventure at the time of the procedure; L29.9 Pruritus, unspecified; Y83.8 Other surgical procedures as the cause of abnormal reaction of the patient, or of later complication, without mention of misadventure at the time of the procedure; X58.XXXA Exposure to other specified factors, initial encounter; Y92.89 Other specified places as the place of occurrence of the external cause; Y93.89 Activity, other specified; Y99.8 Other external cause status; Z88.8 Allergy status to other drugs, medicaments and biological substances; Z85.47 Personal history of malignant neoplasm of testis; Z90.79 Acquired absence of other genital organ(s); Z85.038 Personal history of other malignant neoplasm of large intestine; Z90.2 Acquired absence of lung [part of]; Z85.118 Personal history of other malignant neoplasm of bronchus and lung; Z88.6 Allergy status to analgesic agent
CPT/HCPCS: 36415; 71045; 80048; 80053; 80202; 80320; 82140; 82550; 82553; 83605; 83735; 83880; 84100; 84145; 84439; 84443; 84484; 85025; 85027; 85379; 99285; A4606; J0692; J1171; J1200; J2405; J2470; J3373; J3490; J7060; G0480

== ENCOUNTER 2025-02-24 11:25 | Emergency (ER) | payer SELFPAY ==
[~2025-02-24] VITALS: Ht 167.6 cm; Wt 81.0 kg
[~2025-02-24 11:25] MED LIST changes: +NEOM28OI53 TOP
[2025-02-24 11:32] VITALS: O2SAT 98
[2025-02-24 12:31] LABS: BASOPHILS % 1.2 % (0.0-2.0); EOSINOPHILS % 0.9 % (0.0-5.0); HEMATOCRIT. 27.0 % (42.0-52.0); HEMOGLOBIN. 8.4 g/dL (14.0-18.0); LYMPHOCYTES % 18.1 % (20.0-50.0); MEAN PLATELET VOLUME 8.2 fl (7.4-10.4); MONOCYTES % 7.0 % (2.0-8.0); NEUTROPHILS % 72.8 % (40.0-76.0); PLATELET 230 x1000/uL (130-400); RED BLOOD CELL COUNT 3.44 mill/uL (4.7-6.1); RED CELL DISTRIBUTION WIDTH 22.3 % (11.6-14.6)
[2025-02-24 12:35] LABS: ADD RBC MORPHOLOGY YES
[2025-02-24 12:50] LABS: CREATININE 1.0 mg/dL (0.6-1.3)
[2025-02-24 12:51] LABS: TROPONIN I HIGH SENSITIVITY < 4 ng/L (3.0-53); UREA NITROGEN BLOOD 20 mg/dL (9-23)
[2025-02-24 12:54] LABS: PLATELET ESTIMATE NORMAL
[2025-02-24] MEDS: MORPHINE SULFATE 4 MG/ML INJ (FOR IV/IM USE) IV ONE (13:16)
[2025-02-24] MEDS: ENOXAPARIN 80MG/0.8ML SYR SUBCUT ONE (13:53)
[2025-02-24] MEDS: DIPHENHYDRAMINE 50MG/ML VIAL IV ONE (13:59)
[2025-02-24] MEDS: ONDANSETRON HCL 4MG/2ML INJ IV ONE (13:59)
[2025-02-24] MEDS: METHYLPREDNISOLONE SOD SUCC 125MG/2ML (ACT-O-VIAL) IV ONE (13:59)
[2025-02-24] MEDS ORDERED: KETOROLAC 30MG/ML VIAL IV ONE (14:30)
[2025-02-24] MEDS ORDERED: DIPHENHYDRAMINE 50MG/ML VIAL IV PRN (14:30)
[2025-02-24 14:37] VITALS: BP 126/94; PULSE 116; RESP 21; TEMP 36.6; O2SAT 98
== END 2025-02-24 14:37 | disposition left against medical advice (07) ==
LOC: ER 11:25 → EDBEDREQ 14:23 → EDBEDREQTM 14:23 → ENRESERV 14:33 → ER 14:37 → CMPBEDREQ 02-25 11:05
DX: R06.00 Dyspnea, unspecified (principal); Z98.890 Other specified postprocedural states; Z88.5 Allergy status to narcotic agent; Z88.6 Allergy status to analgesic agent; Z88.8 Allergy status to other drugs, medicaments and biological substances
CPT/HCPCS: 80048; 83880; 85025; 84484; 36415; 71045; 93005; 96374; 96375; 99285; J1200; J2919; J2405; Z7610; J1650

== ENCOUNTER 2025-02-25 06:05 | Emergency (ER) | payer SELFPAY ==
[~2025-02-25] VITALS: Ht 167.6 cm; Wt 80.0 kg
[2025-02-25 06:09] VITALS: O2SAT 100
[2025-02-25] MEDS ORDERED: ACETAMINOPHEN 325MG TABLET PO ONE (06:15)
[2025-02-25 06:41] VITALS: BP 138/89; PULSE 110; RESP 15; TEMP 36.6; O2SAT 100
== END 2025-02-25 07:17 | disposition left against medical advice (07) ==
LOC: ER 06:05 → EDBEDREQTM 06:59 → EDBEDREQ 06:59 → ER 07:17 → CMPBEDREQ 07:18
DX: R06.09 Other forms of dyspnea (principal); C78.00 Secondary malignant neoplasm of unspecified lung; Z88.5 Allergy status to narcotic agent; Z88.6 Allergy status to analgesic agent; Z79.899 Other long term (current) drug therapy
CPT/HCPCS: 71045; 93005; 99283

== ENCOUNTER 2025-03-06 13:25 | Emergency (ER) | payer SELFPAY ==
[~2025-03-06] VITALS: Ht 172.7 cm; Wt 90.7 kg
[2025-03-06 13:32] VITALS: O2SAT 98
[2025-03-06] MEDS ORDERED: HYDROMORPHONE HCL/PF 2MG/ML INJ IV ONE ×5 (14:15→21:30)
[2025-03-06] MEDS: DIPHENHYDRAMINE 25MG CAPSULE PO ONE (14:47)
[2025-03-06] MEDS: ONDANSETRON HCL 4MG/2ML INJ IV ONE (14:47)
[2025-03-06] MEDS: SODIUM CHLORIDE 0.9% 1,000 ML IV ONE (14:48)
[2025-03-06] MEDS: HYDROMORPHONE HCL/PF 1MG/ML INJ IV SCH ×4 (14:48→22:07)
[2025-03-06 14:55] LABS: BASOPHILS % 0.5 % (0.0-2.0); EOSINOPHILS % 0.2 % (0.0-5.0); HEMATOCRIT. 30.9 % (42.0-52.0); HEMOGLOBIN. 9.6 g/dL (14.0-18.0); LYMPHOCYTES % 9.3 % (20.0-50.0); MEAN PLATELET VOLUME 8.3 fl (7.4-10.4); MONOCYTES % 11.2 % (2.0-8.0); NEUTROPHILS % 78.8 % (40.0-76.0); PLATELET 190 x1000/uL (130-400); RED BLOOD CELL COUNT 3.78 mill/uL (4.7-6.1); RED CELL DISTRIBUTION WIDTH 19.5 % (11.6-14.6)
[2025-03-06 15:10] LABS: CREATININE 1.0 mg/dL (0.6-1.3); TROPONIN I HIGH SENSITIVITY < 4 ng/L (3.0-53); UREA NITROGEN BLOOD 12 mg/dL (9-23)
[2025-03-06 15:12] LABS: ASPARTATE AMINOTRANSFERASE 12 IU/L (<34); BILIRUBIN TOTAL 0.3 mg/dL (0.1-1.0); PHOSPHORUS 1.6 mg/dL (2.5-4.9); PROTEIN TOTAL 5.5 g/dL (6.0-8.3)
[2025-03-06] MEDS ORDERED: DIPHENHYDRAMINE 50MG/ML VIAL IV ONE (16:45)
[2025-03-06] MEDS: METHYLPREDNISOLONE SOD SUCC 40MG/ML (ACT-O-VIAL) IV ONE (17:19)
[2025-03-06] MEDS: HYDROMORPHONE HCL/PF 1MG/ML INJ IV NR (17:56)
[2025-03-06] MEDS: DIPHENHYDRAMINE 50MG/ML VIAL IV SCH (19:27)
[2025-03-06 19:43] VITALS: TEMP 36.5; O2SAT 97
[2025-03-06 19:45] VITALS: TEMP 97.70
[2025-03-06 22:07] VITALS: BP 135/89; PULSE 84; RESP 10
== END 2025-03-06 22:39 | disposition home or self-care (01) ==
LOC: ER 13:25 → CANBEDREQ 22:24 → ER 22:39
DX: R06.02 Shortness of breath (principal); C78.00 Secondary malignant neoplasm of unspecified lung; Z79.899 Other long term (current) drug therapy; Z85.47 Personal history of malignant neoplasm of testis; Z85.038 Personal history of other malignant neoplasm of large intestine; Z88.6 Allergy status to analgesic agent; Z88.8 Allergy status to other drugs, medicaments and biological substances; Z88.5 Allergy status to narcotic agent
CPT/HCPCS: 80053; 83880; 83735; 84100; 85025; 85379; 84484; 36415; 84145; 71045; 71275; 93005; 96374; 96375; 96376; 99285; Q9967; Q0163; J1200; J2919; J2405; J1171; J7030; Z7610 ×3; A4606

== ENCOUNTER 2025-03-23 10:36 | Emergency (ER) | payer MEDICAID ==
[~2025-03-23] VITALS: Ht 177.8 cm; Wt 91.0 kg
[2025-03-23 10:44] VITALS: O2SAT 97
[2025-03-23] MEDS: MORPHINE SULFATE 4 MG/ML INJ (FOR IV/IM USE) IV ONE (11:48)
[2025-03-23 11:53] LABS: BASOPHILS % 0.4 % (0.0-2.0); EOSINOPHILS % 0.3 % (0.0-5.0); HEMATOCRIT. 28.3 % (42.0-52.0); HEMOGLOBIN. 8.9 g/dL (14.0-18.0); LYMPHOCYTES % 7.1 % (20.0-50.0); MEAN PLATELET VOLUME 7.6 fl (7.4-10.4); MONOCYTES % 8.5 % (2.0-8.0); NEUTROPHILS % 83.7 % (40.0-76.0); PLATELET 231 x1000/uL (130-400); RED BLOOD CELL COUNT 3.51 mill/uL (4.7-6.1); RED CELL DISTRIBUTION WIDTH 21.1 % (11.6-14.6)
[2025-03-23 12:07] LABS: CREATININE 0.9 mg/dL (0.6-1.3); UREA NITROGEN BLOOD 20 mg/dL (9-23)
[2025-03-23 12:35] VITALS: TEMP 37.1; O2SAT 92
[2025-03-23 13:14] VITALS: BP 141/96; PULSE 100; RESP 20; TEMP 98.78
== END 2025-03-23 14:59 | disposition left against medical advice (07) ==
LOC: ER 10:39 → EDBEDREQ 12:14 → CANBEDREQ 14:58 → ER 14:59
DX: F11.23 Opioid dependence with withdrawal (principal); C34.31 Malignant neoplasm of lower lobe, right bronchus or lung; Z85.038 Personal history of other malignant neoplasm of large intestine; Z85.118 Personal history of other malignant neoplasm of bronchus and lung; Z85.47 Personal history of malignant neoplasm of testis; Z88.5 Allergy status to narcotic agent; Z88.6 Allergy status to analgesic agent; Z88.8 Allergy status to other drugs, medicaments and biological substances; Z90.2 Acquired absence of lung [part of]; Z90.49 Acquired absence of other specified parts of digestive tract; Z90.79 Acquired absence of other genital organ(s)
CPT/HCPCS: 99284; 96374; 80048; 85025; 36415; 93005; J2270

== ENCOUNTER 2025-04-03 09:07 | Inpatient (IN) | payer SELFPAY ==
[~2025-04-03] VITALS: Ht 172.7 cm; Wt 88.9 kg
[2025-04-03 09:09] VITALS: O2SAT 98
[2025-04-03] MEDS: METHYLPREDNISOLONE SOD SUCC 125MG/2ML (ACT-O-VIAL) IV ONE (10:07)
[2025-04-03] MEDS: DIPHENHYDRAMINE 50MG/ML VIAL IV ONE (10:07)
[2025-04-03] MEDS: ONDANSETRON HCL 4MG/2ML INJ IV ONE (10:07)
[2025-04-03] MEDS: HYDROMORPHONE HCL/PF 2MG/ML INJ IV ONE (10:07)
[2025-04-03 10:28] LABS: CREATININE 0.8 mg/dL (0.6-1.3); TROPONIN I HIGH SENSITIVITY 6 ng/L (3.0-53); UREA NITROGEN BLOOD 12 mg/dL (9-23)
[2025-04-03] MEDS ORDERED: MAGNESIUM/ALUMINUM HYDROXIDE/SIMETHICONE 30ML UDC PO PRN (11:00)
[2025-04-03] MEDS ORDERED: ACETAMINOPHEN 325MG TABLET PO PRN ×2 (11:00)
[2025-04-03] MEDS ORDERED: CLONIDINE 0.1MG TABLET PO PRN (11:00)
[2025-04-03] MEDS ORDERED: GUAIFENESIN 200MG/10ML SUGAR FREE UDC PO PRN (11:00)
[2025-04-03] MEDS ORDERED: DOCUSATE SODIUM 100MG CAPSULE PO PRN (11:00)
[2025-04-03] MEDS ORDERED: IPRATROPIUM/ALBUTEROL 0.5-3(2.5)MG/3ML NEB HHN PRN (11:00)
[2025-04-03] MEDS: PANTOPRAZOLE SODIUM 40 MG/VIAL IV SCH (11:21)
[2025-04-03] MEDS ORDERED: NALOXONE HCL 0.4MG/ML VIAL IV PRN (11:45)
[2025-04-03] MEDS: IOHEXOL-350 100 ML BOTTLE ONE (11:54)
[2025-04-03 12:30] VITALS: BP 126/92; PULSE 82; RESP 18; TEMP 36.2; O2SAT 100
[2025-04-03 12:45] LABS: HEMATOCRIT. 31.9 % (42.0-52.0); HEMOGLOBIN. 9.9 g/dL (14.0-18.0); MEAN PLATELET VOLUME 8.4 fl (7.4-10.4); RED BLOOD CELL COUNT 3.91 mill/uL (4.7-6.1); RED CELL DISTRIBUTION WIDTH 20.2 % (11.6-14.6)
[2025-04-03 12:56] LABS: PLATELET 214 x1000/uL (130-400)
[2025-04-03 13:00] LABS: CREATININE 0.8 mg/dL (0.6-1.3); TROPONIN I HIGH SENSITIVITY 7 ng/L (3.0-53); UREA NITROGEN BLOOD 13 mg/dL (9-23)
[2025-04-03 13:02] LABS: ASPARTATE AMINOTRANSFERASE 19 IU/L (<34); BILIRUBIN TOTAL 0.5 mg/dL (0.1-1.0); PROTEIN TOTAL 6.9 g/dL (6.0-8.3)
[2025-04-03] MEDS: HYDROMORPHONE HCL/PF 1MG/ML INJ IM PRN (13:27)
[2025-04-03 13:46] VITALS: BP 126/92; PULSE 82; RESP 18; TEMP 36.2512
[2025-04-03 14:04] LABS: BAND% 3.0 % (1.0-6.0); LYMPHOCYTES % MANUAL 2.0 % (20.0-50.0); MONOCYTES % MANUAL 2.0 % (2.0-8.0); NEUTROPHILS % MANUAL 93.0 % (45.0-75.0); PLATELET ESTIMATE NORMAL
[2025-04-03 16:30] VITALS: BP 120/90; PULSE 98; RESP 18; TEMP 36.6; O2SAT 98
[2025-04-03] MEDS: DIPHENHYDRAMINE 50MG/ML VIAL IV PRN (18:08)
[2025-04-03 18:43] LABS: CLARITY URINE CLEAR (CLEAR); GLUCOSE URINE 1+ (NEGATIVE); KETONES URINE NEGATIVE (NEGATIVE); LEUKOCYTE ESTERASE URINE NEGATIVE (NEGATIVE); NITRITE URINE NEGATIVE (NEGATIVE); OCCULT BLOOD URINE NEGATIVE (NEGATIVE); PH URINE 5.5 (4.5-8.0); PROTEIN URINE NEGATIVE (NEGATIVE); SPECIFIC GRAVITY URINE 1.058 (1.005-1.030); UROBILINOGEN URINE 0.2 E.U./dL (0.2-1.0)
[2025-04-03 18:51] LABS: *AMPHETAMINES SCREEN URINE NEGATIVE (NEGATIVE); *BARBITURATES SCREEN URINE NEGATIVE (NEGATIVE); *BENZODIAZEPINES SCREEN URINE NEGATIVE (NEGATIVE); *COCAINE SCREEN URINE NEGATIVE (NEGATIVE); METHADONE URINE SCREEN NEGATIVE (NEGATIVE); OPIATES URINE SCREEN PRESUMPTIVE POSITIVE (NEGATIVE)
[2025-04-03 18:52] LABS: CANNABINOID URINE SCREEN NEGATIVE (NEGATIVE); ECSTASY MDMA SCREEN URINE NEGATIVE (NEGATIVE); PHENCYCLIDINE URINE SCREEN NEGATIVE (NEGATIVE)
[2025-04-03 20:00] VITALS: BP 122/77; PULSE 90; RESP 17; TEMP 36.5; O2SAT 97
[2025-04-03] MEDS: SODIUM CHLORIDE 0.9% 500 ML IV ONE (20:00)
[2025-04-03 21:08] LABS: COLOR URINE STRAW (YELLOW)
[2025-04-03 21:10] LABS: BACTERIA URINE NONE SEEN; RBC URINE NONE SEEN /hpf (0-2); SQUAMOUS EPITHELIAL CELL URINE NONE SEEN /lpf (RARE/1+); WBC URINE 0-2 /hpf (0-2)
[2025-04-04] VITALS: BP 114/88; PULSE 83; RESP 18; TEMP 36.4; O2SAT 99
[2025-04-04] MEDS: ONDANSETRON HCL 4MG/2ML INJ IV PRN (03:16)
[2025-04-04 04:00] VITALS: BP 138/86; PULSE 82; RESP 18; TEMP 36.4; O2SAT 100
[2025-04-04 06:00] LABS: BASOPHILS % 0.4 % (0.0-2.0); EOSINOPHILS % 0.0 % (0.0-5.0); HEMATOCRIT. 28.9 % (42.0-52.0); HEMOGLOBIN. 9.1 g/dL (14.0-18.0); LYMPHOCYTES % 9.8 % (20.0-50.0); MEAN PLATELET VOLUME 8.7 fl (7.4-10.4); MONOCYTES % 3.0 % (2.0-8.0); NEUTROPHILS % 86.8 % (40.0-76.0); PLATELET 222 x1000/uL (130-400); RED BLOOD CELL COUNT 3.65 mill/uL (4.7-6.1); RED CELL DISTRIBUTION WIDTH 19.8 % (11.6-14.6)
[2025-04-04 06:31] LABS: CREATINE KINASE MB FRACTION < 0.5 ng/mL (0.5-3.6); TROPONIN I HIGH SENSITIVITY < 4 ng/L (3.0-53)
[2025-04-04 06:35] LABS: T4 FREE 0.93 ng/dL (0.89-1.76)
[2025-04-04 08:00] VITALS: BP 131/83; PULSE 84; RESP 18; TEMP 36.3; O2SAT 98
[2025-04-04 12:00] VITALS: BP 117/85; PULSE 104; RESP 20; TEMP 36.1; O2SAT 95
[2025-04-04 16:00] VITALS: BP 132/80; PULSE 105; RESP 18; TEMP 36.4; O2SAT 98
[2025-04-04] MEDS: DIPHENHYDRAMINE 50MG/ML VIAL IV PRN (16:00)
[2025-04-04 20:00] VITALS: BP 129/85; PULSE 94; RESP 20; TEMP 36.9; O2SAT 99
[2025-04-05] VITALS: BP 120/82; PULSE 90; RESP 18; TEMP 36.8; O2SAT 99
[2025-04-05 04:00] VITALS: BP 123/86; PULSE 88; RESP 17; TEMP 36.7; O2SAT 99
[2025-04-05 08:00] VITALS: BP 137/87; PULSE 104; RESP 18; TEMP 36.6; O2SAT 99
[2025-04-05 08:09] LABS: CREATININE 1.0 mg/dL (0.6-1.3); UREA NITROGEN BLOOD 22 mg/dL (9-23)
[2025-04-05 08:15] LABS: T4 FREE 1.40 ng/dL (0.89-1.76)
[2025-04-05 12:00] VITALS: BP 125/84; PULSE 109; RESP 20; TEMP 36.7; O2SAT 100
[2025-04-05] MEDS: MUPIROCIN 2% OINT 15GM TOP SCH (14:02)
[2025-04-05 16:00] VITALS: BP 128/88; PULSE 115; RESP 19; TEMP 36.8; O2SAT 98
[2025-04-05 20:00] VITALS: BP 115/83; PULSE 116; RESP 20; TEMP 36.6; O2SAT 97
[2025-04-06] VITALS: BP 112/78; PULSE 100; RESP 21; TEMP 36.6; O2SAT 98
[2025-04-06 03:50] LABS: CREATININE 0.9 mg/dL (0.6-1.3)
[2025-04-06 03:51] LABS: UREA NITROGEN BLOOD 19 mg/dL (9-23)
[2025-04-06 04:00] VITALS: BP 119/80; PULSE 92; RESP 20; TEMP 36.3; O2SAT 96
[2025-04-06 08:00] VITALS: BP 120/79; PULSE 98; RESP 18; TEMP 37.1; O2SAT 98
[2025-04-06] MEDS: POTASSIUM CHLORIDE 20MEQ/PACKET PO SCH (08:42)
[2025-04-06 12:00] VITALS: BP 112/71; PULSE 98; RESP 18; TEMP 36.2; O2SAT 98
[2025-04-06 16:00] VITALS: BP 127/85; PULSE 100; RESP 20; TEMP 36.6; O2SAT 96
[2025-04-06 20:00] VITALS: BP 133/88; PULSE 96; RESP 20; TEMP 36.5; O2SAT 98
[2025-04-07] VITALS: BP 138/90; PULSE 95; RESP 20; TEMP 35.6; O2SAT 97
[2025-04-07 04:00] VITALS: BP 132/86; PULSE 90; RESP 20; TEMP 36.2; O2SAT 96
[2025-04-07 08:00] VITALS: BP 114/84; PULSE 89; RESP 17; TEMP 36.4; O2SAT 97
[2025-04-07] MEDS: POTASSIUM CHLORIDE 20MEQ/PACKET PO SCH ×2 (08:39→12:51)
[2025-04-07 11:25] LABS: PLATELET 200 x1000/uL (130-400); RED BLOOD CELL COUNT 3.35 mill/uL (4.7-6.1); RED CELL DISTRIBUTION WIDTH 20.2 % (11.6-14.6)
[2025-04-07 12:00] VITALS: BP 123/85; PULSE 92; RESP 18; TEMP 36.8; O2SAT 100
[2025-04-07 16:00] VITALS: BP 123/85; PULSE 95; RESP 18; TEMP 36.7; O2SAT 100
[2025-04-07 20:00] VITALS: BP 136/76; PULSE 107; RESP 18; TEMP 36.6; O2SAT 99
[2025-04-08] VITALS: BP 108/71; PULSE 96; RESP 16; TEMP 36.4; O2SAT 97
[2025-04-08 04:00] VITALS: BP 115/80; PULSE 94; RESP 16; TEMP 36.6; O2SAT 99
[2025-04-08 08:00] VITALS: BP 124/90; PULSE 88; RESP 16; TEMP 36.6; O2SAT 95
[2025-04-08 12:00] VITALS: BP 109/75; PULSE 96; RESP 18; TEMP 36.6; O2SAT 100
[2025-04-08 14:33] VITALS: BP 109/75; PULSE 96; RESP 18; TEMP 97.8
== END 2025-04-08 15:00 | disposition home or self-care (01) | DRG 385 ==
LOC: ER 09:07 → 8WST 10:39 → EDBEDREQ 10:41 → EDBEDREQTM 10:41 → ENRESERV 10:45 → 6EST 04-06 13:02
PROVIDERS: ADMIT Hospitalist; ATTEND Hospitalist
DX: L29.89 Other pruritus (principal); C78.01 Secondary malignant neoplasm of right lung; C78.5 Secondary malignant neoplasm of large intestine and rectum; K92.2 Gastrointestinal hemorrhage, unspecified; C62.92 Malignant neoplasm of left testis, unspecified whether descended or undescended; D62 Acute posthemorrhagic anemia; E05.90 Thyrotoxicosis, unspecified without thyrotoxic crisis or storm; D63.8 Anemia in other chronic diseases classified elsewhere; D50.9 Iron deficiency anemia, unspecified; E66.9 Obesity, unspecified; E87.6 Hypokalemia; Z85.47 Personal history of malignant neoplasm of testis; Z90.79 Acquired absence of other genital organ(s); Z85.038 Personal history of other malignant neoplasm of large intestine; Z85.118 Personal history of other malignant neoplasm of bronchus and lung; Z86.718 Personal history of other venous thrombosis and embolism; Z88.6 Allergy status to analgesic agent; Z90.2 Acquired absence of lung [part of]; Z90.49 Acquired absence of other specified parts of digestive tract; Z91.041 Radiographic dye allergy status; Z79.899 Other long term (current) drug therapy
CPT/HCPCS: 36415; 71045; 71275; 80048; 80053; 80305; 81003; 82550; 82553; 84439; 84443; 84484; 85014; 85018; 85025; 85027; 93005; 93970; 96374; 96375; 99291; A4606; A6449; J1171; J1200; J2405; J2470; J2919; Q9967

== ENCOUNTER 2025-04-09 10:02 | Emergency (ER) | payer SELFPAY ==
[~2025-04-09] VITALS: Ht 170.2 cm; Wt 73.0 kg
[2025-04-09 10:05] VITALS: O2SAT 100
[2025-04-09 12:16] VITALS: BP 125/91; PULSE 112; RESP 32; TEMP 37; O2SAT 98
[2025-04-09] MEDS ORDERED: SODIUM CHLORIDE 0.9% 1,000 ML IV ONE (12:30)
[2025-04-09] MEDS ORDERED: OXYCODONE HCL/ACETAMINOPHEN 5/325MG TABLET PO ONE (12:30)
[2025-04-20] MEDS ORDERED: CEPH500C2 MT (10:04)
== END 2025-04-09 13:04 | disposition left against medical advice (07) ==
LOC: ER 10:14 → CMPBEDREQ 13:38
DX: R05.9 Cough, unspecified (principal); R53.1 Weakness; Z85.118 Personal history of other malignant neoplasm of bronchus and lung; Z95.828 Presence of other vascular implants and grafts
CPT/HCPCS: 99284; 71045; 93005; J7030

== ENCOUNTER 2025-04-17 13:16 | Inpatient (IN) | payer SELFPAY ==
[~2025-04-17] VITALS: Ht 167.6 cm; Wt 88.5 kg
[2025-04-17 13:27] VITALS: O2SAT 100
[2025-04-17] MEDS ORDERED: METHYLPREDNISOLONE 40MG/ML INJ IV STA (13:29)
[2025-04-17] MEDS ORDERED: HYDROMORPHONE HCL/PF 2MG/ML INJ IV ONE ×2 (13:30→15:45)
[2025-04-17] MEDS: FAMOTIDINE 20MG/2ML VIAL IV ONE (14:18)
[2025-04-17] MEDS: ONDANSETRON HCL 4MG/2ML INJ IV ONE (14:18)
[2025-04-17] MEDS: DIPHENHYDRAMINE 50MG/ML VIAL IV ONE (14:18)
[2025-04-17] MEDS: METHYLPREDNISOLONE SOD SUCC 125MG/2ML (ACT-O-VIAL) IV SCH (14:19)
[2025-04-17] MEDS: HYDROMORPHONE HCL/PF 1MG/ML INJ IV NR (14:19)
[2025-04-17 14:23] LABS: HEMATOCRIT. 36.0 % (42.0-52.0); HEMOGLOBIN. 11.6 g/dL (14.0-18.0); MEAN PLATELET VOLUME 8.0 fl (7.4-10.4); PLATELET 200 x1000/uL (130-400); RED BLOOD CELL COUNT 4.50 mill/uL (4.7-6.1); RED CELL DISTRIBUTION WIDTH 18.3 % (11.6-14.6)
[2025-04-17 14:39] LABS: CREATININE 0.8 mg/dL (0.6-1.3); UREA NITROGEN BLOOD 20 mg/dL (9-23)
[2025-04-17 14:40] LABS: TROPONIN I HIGH SENSITIVITY 22 ng/L (3.0-53)
[2025-04-17 14:51] LABS: BAND% 3.0 % (1.0-6.0); LYMPHOCYTES % MANUAL 5.0 % (20.0-50.0); METAMYELOCYTES % 1.0 % (0-0); MONOCYTES % MANUAL 8.0 % (2.0-8.0); NEUTROPHILS % MANUAL 83.0 % (45.0-75.0); PLATELET ESTIMATE NORMAL
[2025-04-17] MEDS: HYDROMORPHONE HCL/PF 1MG/ML INJ IV SCH (15:49)
[2025-04-17 15:52] LABS: INR 1.0
[2025-04-17 18:55] LABS: TROPONIN I HIGH SENSITIVITY 17 ng/L (3.0-53)
[2025-04-17] MEDS ORDERED: MAGNESIUM/ALUMINUM HYDROXIDE/SIMETHICONE 30ML UDC PO PRN (20:00)
[2025-04-17] MEDS ORDERED: ONDANSETRON HCL 4MG/2ML INJ IV PRN (20:00)
[2025-04-17] MEDS ORDERED: DIPHENHYDRAMINE 50MG/ML VIAL IV PRN (20:00)
[2025-04-17] MEDS ORDERED: ACETAMINOPHEN 325MG TABLET PO PRN ×2 (20:00)
[2025-04-17] MEDS ORDERED: CLONIDINE 0.1MG TABLET PO PRN (20:00)
[2025-04-17] MEDS ORDERED: IPRATROPIUM/ALBUTEROL 0.5-3(2.5)MG/3ML NEB NEB PRN (20:00)
[2025-04-17] MEDS ORDERED: ZOLPIDEM TARTRATE 5MG TABLET PO PRN (20:00)
[2025-04-17] MEDS ORDERED: GUAIFENESIN 200MG/10ML SUGAR FREE UDC PO PRN (20:00)
[2025-04-17] MEDS: HYDROMORPHONE HCL/PF 2MG/ML INJ IV PRN (21:12)
[2025-04-17] MEDS: SODIUM CHLORIDE 0.9% 3ML FLUSH IVF SCH (22:08)
[2025-04-17 22:58] VITALS: BP 140/93; PULSE 97; RESP 17; TEMP 36.7516
[2025-04-17] MEDS ORDERED: IOHEXOL-350 100 ML BOTTLE ONE (23:46)
[2025-04-18] VITALS (7 sets, daily range): BP systolic 115–139; BP diastolic 67–105; PULSE 74–112; RESP 14–19; TEMP 36.7; O2SAT 95–99
[2025-04-18] MEDS ORDERED: DIPHENHYDRAMINE 50MG/ML VIAL IV PRN (00:30)
[2025-04-18] MEDS: DIPHENHYDRAMINE 50MG/ML VIAL IV PRN (00:32)
[2025-04-18] MEDS: POTASSIUM CHLORIDE 20MEQ TABLET SR PO SCH (00:34)
[2025-04-19] VITALS: BP 123/89; PULSE 85; RESP 10; TEMP 36.8; O2SAT 97
[2025-04-19 04:00] VITALS: BP 111/88; PULSE 95; RESP 20; TEMP 36.6; O2SAT 99
[2025-04-19 08:00] VITALS: BP 115/81; PULSE 106; RESP 13; TEMP 36.8; O2SAT 95
[2025-04-19 11:01] LABS: PLATELET 175 x1000/uL (130-400); RED BLOOD CELL COUNT 4.74 mill/uL (4.7-6.1); RED CELL DISTRIBUTION WIDTH 19.3 % (11.6-14.6)
[2025-04-19 12:00] VITALS: BP 118/85; PULSE 89; RESP 10; TEMP 36.7; O2SAT 95
[2025-04-19] MEDS ORDERED: NALOXONE HCL 0.4MG/ML VIAL IV PRN (15:15)
[2025-04-19 16:00] VITALS: BP 129/88; PULSE 104; RESP 18; TEMP 36.8; O2SAT 96
[2025-04-19] MEDS: PENICILLIN V POTASSIUM 250 MG/5 ML 100ML BOTTLE PO SCH (17:19)
[2025-04-19 20:00] VITALS: BP 114/85; PULSE 95; RESP 12; TEMP 36.7; O2SAT 97
[2025-04-19] MEDS ORDERED: CEFAZOLIN SODIUM 1000MG/VIAL IV SCH (22:00)
[2025-04-19] MEDS ORDERED: CEFAZOLIN 1000MG PREMIX 50 ML IV SCH (22:00)
[2025-04-19] MEDS: CEFAZOLIN 1000MG PREMIX 50 ML IV SCH (23:06)
[2025-04-20] VITALS (7 sets, daily range): BP systolic 104–145; BP diastolic 63–95; PULSE 94–120; RESP 12–21; TEMP 36.5–36.8; O2SAT 97–98
[2025-04-20] MEDS ORDERED: CEPH500C2 MT (10:04)
[2025-04-20] MEDS ORDERED: PENICILLIN V POTASSIUM 250MG TABLET PO SCH (12:00)
== END 2025-04-20 18:30 | disposition home or self-care (01) | DRG 203 ==
LOC: ER 13:16 → EDBEDREQ 13:36 → 3WST 15:24 → EDBEDREQ 15:39 → EDBEDREQTM 15:39 → ENRESERV 15:51
PROVIDERS: ADMIT Internal Medicine; ATTEND Internal Medicine
DX: R07.89 Other chest pain (principal); K92.2 Gastrointestinal hemorrhage, unspecified; A46 Erysipelas; R06.02 Shortness of breath; Z85.47 Personal history of malignant neoplasm of testis; Z86.711 Personal history of pulmonary embolism; Z88.6 Allergy status to analgesic agent; Z85.038 Personal history of other malignant neoplasm of large intestine; Z85.118 Personal history of other malignant neoplasm of bronchus and lung
CPT/HCPCS: 36415; 71045; 71275; 80048; 83880; 84484; 85025; 85027; 85379; 93005; 93970; 96374; 96375; 99291; A4606; J0690; J1171; J1200; J1308; J2405; J2919; Q9967

== ENCOUNTER 2025-04-21 14:46 | Emergency (ER) | payer SELFPAY ==
[~2025-04-21] VITALS: Ht 167.6 cm; Wt 97.0 kg
[~2025-04-21 14:46] MED LIST changes: +CEPH500C2 MT
[2025-04-21 14:48] VITALS: O2SAT 97
[2025-04-21] MEDS: SODIUM CHLORIDE 0.9% 1,000 ML IV ONE (15:15)
[2025-04-21] MEDS: HYDROMORPHONE HCL/PF 2MG/ML INJ IV ONE ×3 (15:35→18:59)
[2025-04-21 15:51] LABS: BASOPHILS % 0.2 % (0.0-2.0); EOSINOPHILS % 1.1 % (0.0-5.0); HEMATOCRIT. 38.2 % (42.0-52.0); HEMOGLOBIN. 12.2 g/dL (14.0-18.0); LYMPHOCYTES % 11.2 % (20.0-50.0); MEAN PLATELET VOLUME 8.5 fl (7.4-10.4); MONOCYTES % 8.2 % (2.0-8.0); NEUTROPHILS % 79.3 % (40.0-76.0); PLATELET 194 x1000/uL (130-400); RED BLOOD CELL COUNT 4.71 mill/uL (4.7-6.1); RED CELL DISTRIBUTION WIDTH 19.0 % (11.6-14.6)
[2025-04-21 16:03] LABS: INR 1.0
[2025-04-21 16:04] LABS: CREATININE 0.9 mg/dL (0.6-1.3)
[2025-04-21 16:05] LABS: UREA NITROGEN BLOOD 14 mg/dL (9-23)
[2025-04-21 16:06] LABS: ASPARTATE AMINOTRANSFERASE 21 IU/L (<34)
[2025-04-21 16:07] LABS: BILIRUBIN DIRECT 0.1 mg/dL (<=3.0); BILIRUBIN TOTAL 0.4 mg/dL (0.1-1.0); PROTEIN TOTAL 6.0 g/dL (6.0-8.3)
[2025-04-21 16:19] LABS: TROPONIN I HIGH SENSITIVITY 7 ng/L (3.0-53)
[2025-04-21] MEDS ORDERED: DIPHENHYDRAMINE 50MG CAPSULE PO ONE (16:30)
[2025-04-21] MEDS: DIPHENHYDRAMINE 25MG CAPSULE PO NR (16:57)
[2025-04-21] MEDS: LACTATED RINGERS 1,000 ML IV SCH (16:57)
[2025-04-21 20:00] VITALS: TEMP 37
[2025-04-21] MEDS: HYDROMORPHONE HCL/PF 2MG/ML INJ IV PRN (21:00)
[2025-04-21 21:02] VITALS: BP 139/71; PULSE 110; RESP 22; TEMP 98.6; O2SAT 97
== END 2025-04-21 22:17 | disposition left against medical advice (07) ==
LOC: ER 14:46 → EDBEDREQTM 18:35 → EDBEDREQ 18:35 → ENRESERV 20:40 → ER 22:17 → CMPBEDREQ 23:08
DX: R07.9 Chest pain, unspecified (principal); R06.02 Shortness of breath; Z88.5 Allergy status to narcotic agent; Z88.6 Allergy status to analgesic agent; Z88.8 Allergy status to other drugs, medicaments and biological substances
CPT/HCPCS: 99291; 96374; 96361; 80076; 80048; 83880; 83605; 83735; 85025; 85379; 85610; 87040; 84484; 36415; 84145; 71045; 93005; 96376; Q0163; J1171; J7030

== ENCOUNTER 2025-05-09 09:15 | Emergency (ER) | payer SELFPAY ==
[~2025-05-09] VITALS: Ht 172.7 cm; Wt 94.0 kg
[2025-05-09 09:16] VITALS: TEMP 37.1; O2SAT 98
[2025-05-09] MEDS ORDERED: DIPHENHYDRAMINE 50MG/ML VIAL IV ONE (09:45)
[2025-05-09] MEDS: METHYLPREDNISOLONE SOD SUCC 125MG/2ML (ACT-O-VIAL) IV ONE (10:23)
[2025-05-09 10:24] VITALS: BP 135/94; PULSE 119; RESP 18
[2025-05-09] MEDS: HYDROMORPHONE HCL/PF 2MG/ML INJ IV ONE (10:24)
[2025-05-09 11:09] LABS: HEMATOCRIT. 31.9 % (42.0-52.0); HEMOGLOBIN. 10.3 g/dL (14.0-18.0); MEAN PLATELET VOLUME 7.7 fl (7.4-10.4); PLATELET 205 x1000/uL (130-400); RED BLOOD CELL COUNT 3.93 mill/uL (4.7-6.1); RED CELL DISTRIBUTION WIDTH 20.7 % (11.6-14.6)
[2025-05-09 11:21] LABS: CREATININE 0.7 mg/dL (0.6-1.3); UREA NITROGEN BLOOD 16 mg/dL (9-23)
[2025-05-09 11:22] LABS: TROPONIN I HIGH SENSITIVITY < 4 ng/L (3.0-53)
[2025-05-09 11:23] LABS: ASPARTATE AMINOTRANSFERASE 16 IU/L (<34); BILIRUBIN DIRECT 0.1 mg/dL (<=3.0); BILIRUBIN TOTAL 0.4 mg/dL (0.1-1.0); PROTEIN TOTAL 6.0 g/dL (6.0-8.3)
[2025-05-09] MEDS ORDERED: DIPHENHYDRAMINE 50MG/ML VIAL IV NR (11:45)
[2025-05-09] MEDS ORDERED: ACETAMINOPHEN 325MG TABLET PO PRN ×2 (12:00)
[2025-05-09] MEDS ORDERED: DOCUSATE SODIUM 100MG CAPSULE PO PRN (12:00)
[2025-05-09] MEDS ORDERED: HYDROMORPHONE HCL/PF 2MG/ML INJ IV PRN (12:00)
[2025-05-09] MEDS ORDERED: HYDROCODONE/ACETAMINOPHEN 5/325MG TABLET PO PRN (12:00)
[2025-05-09] MEDS ORDERED: CLONIDINE 0.1MG TABLET PO PRN (12:00)
[2025-05-09] MEDS ORDERED: HYDROCODONE/ACETAMINOPHEN 10/325MG TABLET PO PRN (12:00)
[2025-05-09] MEDS ORDERED: ONDANSETRON HCL 4MG/2ML INJ IV PRN (12:00)
[2025-05-09 12:12] LABS: TROPONIN I HIGH SENSITIVITY < 4 ng/L (3.0-53)
[2025-05-09 12:24] LABS: BAND% 1.0 % (1.0-6.0); EOSINOPHILS % MANUAL 1.0 % (0.0-5.0); LYMPHOCYTES % MANUAL 9.0 % (20.0-50.0); MONOCYTES % MANUAL 8.0 % (2.0-8.0); NEUTROPHILS % MANUAL 81.0 % (45.0-75.0); PLATELET ESTIMATE NORMAL
[2025-05-09] MEDS ORDERED: PIPERACILLIN/TAZO 3.375G/50ML 50 ML IV SCH (14:00)
[2025-05-09] MEDS ORDERED: VANCOMYCIN 2GM PMX (XELLIA) 400 ML IV NR (14:00)
[2025-05-09] MEDS ORDERED: NALOXONE HCL 0.4MG/ML VIAL IV PRN (17:30)
[2025-05-10] MEDS ORDERED: VANCOMYCIN 1.5GM/250ML 250 ML IV SCH (10:00)
== END 2025-05-09 12:28 | disposition left against medical advice (07) ==
LOC: ER 09:22 → ENRESERV 11:43 → ER 12:28 → CANBEDREQ 12:32
DX: R06.02 Shortness of breath (principal); R07.89 Other chest pain; R00.0 Tachycardia, unspecified; Z88.5 Allergy status to narcotic agent; Z88.6 Allergy status to analgesic agent; Z88.8 Allergy status to other drugs, medicaments and biological substances; Z91.041 Radiographic dye allergy status
CPT/HCPCS: 80076; 80048; 85025; 84484; 36415; 71045; 93005; 96374; 96375; 99291; J1200; J2919; J1171; Z7610; J3373

== ENCOUNTER 2025-05-15 11:55 | Inpatient (IN) | payer SELFPAY ==
[~2025-05-15] VITALS: Ht 154.9 cm; Wt 90.7 kg
[2025-05-15 11:56] VITALS: O2SAT 100
[2025-05-15] MEDS: DIPHENHYDRAMINE 50MG/ML VIAL IV ONE ×2 (13:03→15:55)
[2025-05-15] MEDS: ONDANSETRON HCL 4MG/2ML INJ IV ONE (13:03)
[2025-05-15] MEDS: SODIUM CHLORIDE 0.9% 500 ML IV ONE ×2 (13:04→22:38)
[2025-05-15] MEDS: HYDROMORPHONE HCL/PF 2MG/ML INJ IV ONE ×2 (13:19→15:29)
[2025-05-15 13:30] LABS: HEMATOCRIT. 33.1 % (42.0-52.0); HEMOGLOBIN. 10.3 g/dL (14.0-18.0); MEAN PLATELET VOLUME 7.6 fl (7.4-10.4); PLATELET 182 x1000/uL (130-400); RED BLOOD CELL COUNT 4.01 mill/uL (4.7-6.1); RED CELL DISTRIBUTION WIDTH 21.1 % (11.6-14.6)
[2025-05-15 13:47] LABS: CREATININE 0.7 mg/dL (0.6-1.3); UREA NITROGEN BLOOD 10 mg/dL (9-23)
[2025-05-15 13:54] LABS: TROPONIN I HIGH SENSITIVITY 4 ng/L (3.0-53)
[2025-05-15 15:05] LABS: BAND% 1.0 % (1.0-6.0); LYMPHOCYTES % MANUAL 10.0 % (20.0-50.0); MONOCYTES % MANUAL 4.0 % (2.0-8.0); NEUTROPHILS % MANUAL 85.0 % (45.0-75.0)
[2025-05-15 15:06] LABS: PLATELET ESTIMATE NORMAL
[2025-05-15] MEDS: KCL 20MEQ/100ML PREMIX 100 ML IV SCH (15:30)
[2025-05-15] MEDS ORDERED: ACETAMINOPHEN 325MG TABLET PO PRN ×2 (16:30)
[2025-05-15] MEDS ORDERED: ONDANSETRON HCL 4MG/2ML INJ IV PRN (16:30)
[2025-05-15] MEDS ORDERED: CLONIDINE 0.1MG TABLET PO PRN (16:30)
[2025-05-15] MEDS ORDERED: DEXTROSE 50% WATER 50ML SYRINGE IV PRN (16:30)
[2025-05-15 18:01] LABS: FOLIC ACID (FOLATE) SERUM > 20.00 ng/mL (>5.38)
[2025-05-15 18:02] LABS: INR 1.1; VITAMIN B12 SERUM 263 pg/mL (211-911)
[2025-05-15] MEDS: DIPHENHYDRAMINE 50MG/ML VIAL IV PRN (18:22)
[2025-05-15] MEDS: HYDROMORPHONE HCL/PF 1MG/ML INJ IV PRN (18:23)
[2025-05-15 18:33] VITALS: BP 119/83; PULSE 89; RESP 19; TEMP 36.5848
[2025-05-15 20:00] VITALS: BP 120/78; PULSE 89; RESP 18; TEMP 36.4; O2SAT 96
[2025-05-15] MEDS ORDERED: NALOXONE HCL 0.4MG/ML VIAL IV PRN (22:00)
[2025-05-15] MEDS: MAGNESIUM 2 G PREMIX 50 ML IV NR (22:25)
[2025-05-15] MEDS: PANTOPRAZOLE SODIUM 40 MG/VIAL IV SCH (22:26)
[2025-05-16] VITALS: BP 125/85; PULSE 88; RESP 20; TEMP 36.6; O2SAT 99
[2025-05-16 04:00] VITALS: BP 130/81; PULSE 82; RESP 18; TEMP 36.3; O2SAT 98
[2025-05-16 08:00] VITALS: BP_SYST 127; BP_SYST 168; BP_DIAS 74; BP_DIAS 83; PULSE 81; PULSE 94; RESP 16; RESP 18; TEMP 36.5; TEMP 36.6; O2SAT 97; O2SAT 98
[2025-05-16] MEDS ORDERED: ENOXAPARIN 30MG/0.3ML SYR SUBCUT SCH (09:00)
[2025-05-16 12:00] VITALS: BP 120/81; PULSE 88; RESP 17; TEMP 36.6; O2SAT 99
[2025-05-16 16:00] VITALS: BP 122/77; PULSE 84; RESP 17; TEMP 36.6; O2SAT 98
[2025-05-17] VITALS: BP 119/78; PULSE 98; RESP 18; TEMP 36.5; O2SAT 98
[2025-05-17 03:10] VITALS: BP 162/96; PULSE 118; RESP 18; TEMP 36.1956
[2025-05-17 04:56] VITALS: BP 127/86; PULSE 94; RESP 16; TEMP 36.5; O2SAT 98
[2025-05-17 06:44] LABS: TRIGLYCERIDE 227 mg/dL (0-150)
[2025-05-17 06:45] LABS: CREATININE 0.9 mg/dL (0.6-1.3)
[2025-05-17 06:46] LABS: LDL CHOLESTEROL 112 mg/dL (5-100); UREA NITROGEN BLOOD 11 mg/dL (9-23)
[2025-05-17 06:47] LABS: ASPARTATE AMINOTRANSFERASE 18 IU/L (<34)
[2025-05-17 06:48] LABS: BILIRUBIN DIRECT 0.2 mg/dL (<=3.0); BILIRUBIN TOTAL 0.6 mg/dL (0.1-1.0); PROTEIN TOTAL 5.7 g/dL (6.0-8.3)
[2025-05-17 06:49] LABS: T4 FREE 1.34 ng/dL (0.89-1.76)
[2025-05-17 06:56] LABS: HEMATOCRIT. 33.1 % (42.0-52.0); HEMOGLOBIN. 10.6 g/dL (14.0-18.0); MEAN PLATELET VOLUME 7.8 fl (7.4-10.4); PLATELET 185 x1000/uL (130-400); RED BLOOD CELL COUNT 4.08 mill/uL (4.7-6.1); RED CELL DISTRIBUTION WIDTH 20.9 % (11.6-14.6)
[2025-05-17 08:00] VITALS: BP 133/84; PULSE 110; RESP 18; TEMP 36.7; O2SAT 98
[2025-05-17 09:31] VITALS: BP 124/89; PULSE 99; RESP 16; TEMP 97.9
[2025-05-17 12:00] VITALS: BP 134/79; PULSE 120; RESP 17; TEMP 36.6; O2SAT 98
[2025-05-17 12:23] LABS: *AMPHETAMINES SCREEN URINE NEGATIVE (NEGATIVE); *BARBITURATES SCREEN URINE NEGATIVE (NEGATIVE); *BENZODIAZEPINES SCREEN URINE NEGATIVE (NEGATIVE); *COCAINE SCREEN URINE NEGATIVE (NEGATIVE); CANNABINOID URINE SCREEN NEGATIVE (NEGATIVE); ECSTASY MDMA SCREEN URINE NEGATIVE (NEGATIVE); METHADONE URINE SCREEN NEGATIVE (NEGATIVE); OPIATES URINE SCREEN PRESUMPTIVE POSITIVE (NEGATIVE); PHENCYCLIDINE URINE SCREEN NEGATIVE (NEGATIVE)
[2025-05-18 12:41] LABS: BAND% 4.0 % (1.0-6.0); EOSINOPHILS % MANUAL 2.0 % (0.0-5.0); LYMPHOCYTES % MANUAL 11.0 % (20.0-50.0); MONOCYTES % MANUAL 6.0 % (2.0-8.0); NEUTROPHILS % MANUAL 77.0 % (45.0-75.0); PLATELET ESTIMATE NORMAL
== END 2025-05-17 14:00 | disposition home or self-care (01) | DRG 861 ==
LOC: ER 12:07 → EDBEDREQ 16:09 → EDBEDREQTM 16:09 → 6WST 19:51
PROVIDERS: ADMIT Internal Medicine; ATTEND Internal Medicine
DX: G89.3 Neoplasm related pain (acute) (chronic) (principal); C78.00 Secondary malignant neoplasm of unspecified lung; K92.2 Gastrointestinal hemorrhage, unspecified; I96 Gangrene, not elsewhere classified; C18.9 Malignant neoplasm of colon, unspecified; C62.90 Malignant neoplasm of unspecified testis, unspecified whether descended or undescended; L01.09 Other impetigo; D50.0 Iron deficiency anemia secondary to blood loss (chronic); B08.02 Orf virus disease; D72.829 Elevated white blood cell count, unspecified; E86.0 Dehydration; L98.44 Non-pressure chronic ulcer of chest; F41.9 Anxiety disorder, unspecified; Z86.711 Personal history of pulmonary embolism; Z86.718 Personal history of other venous thrombosis and embolism; Z88.6 Allergy status to analgesic agent
CPT/HCPCS: 36415; 71045; 80048; 80061; 80076; 80305; 82607; 82746; 83036; 83540; 83550; 83880; 84439; 84443; 84484; 85025; 85379; 93005; 96361; 96365; 96375; 96376; 97165; 99285; J1171; J1200; J2405; J2470; J3475; J3480; J7040

== ENCOUNTER 2025-05-18 09:37 | Inpatient (IN) | payer SELFPAY ==
[~2025-05-18] VITALS: Ht 162.6 cm; Wt 99.8 kg
[~2025-05-18 09:37] MED LIST changes: -CEPH500C2 MT
[2025-05-18 09:39] VITALS: O2SAT 98
[2025-05-18] MEDS: MORPHINE SULFATE 4 MG/ML INJ (FOR IV/IM USE) IV ONE (10:09)
[2025-05-18] MEDS: DIPHENHYDRAMINE 50MG/ML VIAL IV ONE (10:09)
[2025-05-18 10:47] LABS: BASOPHILS % 0.2 % (0.0-2.0); EOSINOPHILS % 0.3 % (0.0-5.0); HEMATOCRIT. 35.7 % (42.0-52.0); HEMOGLOBIN. 11.2 g/dL (14.0-18.0); LYMPHOCYTES % 10.1 % (20.0-50.0); MEAN PLATELET VOLUME 8.0 fl (7.4-10.4); MONOCYTES % 4.7 % (2.0-8.0); NEUTROPHILS % 84.7 % (40.0-76.0); PLATELET 212 x1000/uL (130-400); RED BLOOD CELL COUNT 4.36 mill/uL (4.7-6.1); RED CELL DISTRIBUTION WIDTH 21.3 % (11.6-14.6)
[2025-05-18 11:03] LABS: CREATININE 0.9 mg/dL (0.6-1.3)
[2025-05-18 11:04] LABS: UREA NITROGEN BLOOD 14 mg/dL (9-23)
[2025-05-18 11:05] LABS: TROPONIN I HIGH SENSITIVITY 4 ng/L (3.0-53)
[2025-05-18] MEDS ORDERED: MAGNESIUM/ALUMINUM HYDROXIDE/SIMETHICONE 30ML UDC PO PRN (11:45)
[2025-05-18] MEDS ORDERED: ACETAMINOPHEN 325MG TABLET PO PRN (11:45)
[2025-05-18] MEDS ORDERED: CLONIDINE 0.1MG TABLET PO PRN (11:45)
[2025-05-18] MEDS ORDERED: HYDROCODONE/ACETAMINOPHEN 5/325MG TABLET PO PRN (11:45)
[2025-05-18] MEDS: SODIUM CHLORIDE 0.9% 1,000 ML IV SCH (11:45)
[2025-05-18] MEDS ORDERED: ONDANSETRON HCL 4MG/2ML INJ IV PRN (11:45)
[2025-05-18] MEDS ORDERED: ZOLPIDEM TARTRATE 5MG TABLET PO PRN (11:45)
[2025-05-18] MEDS ORDERED: MORPHINE SULFATE 2 MG/ML INJ (NOT FOR IM USE) IV PRN (11:45)
[2025-05-18] MEDS ORDERED: NALOXONE HCL 0.4MG/ML VIAL IV PRN (12:15)
[2025-05-18] MEDS: ENOXAPARIN 40MG/0.4ML SYR SUBCUT SCH (14:00)
[2025-05-18 15:00] VITALS: BP 129/90; PULSE 110; RESP 16; TEMP 37.1408
[2025-05-18] MEDS: HYDROMORPHONE HCL/PF 1MG/ML INJ IV PRN (15:08)
[2025-05-18] MEDS: DIPHENHYDRAMINE 50MG/ML VIAL IV NR (15:08)
[2025-05-18 16:00] VITALS: BP 113/77; PULSE 111; RESP 17; TEMP 36.1; O2SAT 90
[2025-05-18 20:00] VITALS: BP 122/79; PULSE 121; RESP 16; TEMP 36.9; O2SAT 97
[2025-05-19] VITALS (7 sets, daily range): BP systolic 115–140; BP diastolic 72–95; PULSE 107–117; RESP 17–19; TEMP 36.1–37.3; O2SAT 97–99
[2025-05-19] MEDS: PANTOPRAZOLE SODIUM 40 MG/VIAL IV SCH (09:00)
[2025-05-19] MEDS: DIPHENHYDRAMINE 50MG/ML VIAL IV NR (11:28)
[2025-05-19 13:40] LABS: BASOPHILS % 0.3 % (0.0-2.0); EOSINOPHILS % 1.9 % (0.0-5.0); HEMATOCRIT. 34.4 % (42.0-52.0); HEMOGLOBIN. 10.8 g/dL (14.0-18.0); LYMPHOCYTES % 11.7 % (20.0-50.0); MEAN PLATELET VOLUME 8.3 fl (7.4-10.4); MONOCYTES % 11.4 % (2.0-8.0); NEUTROPHILS % 74.7 % (40.0-76.0); PLATELET 188 x1000/uL (130-400); RED BLOOD CELL COUNT 4.15 mill/uL (4.7-6.1); RED CELL DISTRIBUTION WIDTH 21.9 % (11.6-14.6)
[2025-05-19 14:00] LABS: CREATININE 0.8 mg/dL (0.6-1.3); UREA NITROGEN BLOOD 12 mg/dL (9-23)
[2025-05-19] MEDS: HYDROMORPHONE HCL/PF 1MG/ML INJ IV PRN (19:06)
[2025-05-19] MEDS: DIPHENHYDRAMINE 50MG/ML VIAL IV PRN (19:49)
[2025-05-20] VITALS: BP 121/63; PULSE 102; RESP 17; TEMP 36.4; O2SAT 97
[2025-05-20 04:00] VITALS: BP 121/81; PULSE 103; RESP 17; TEMP 36.9; O2SAT 97
[2025-05-20 08:00] VITALS: BP 119/74; PULSE 96; RESP 18; TEMP 36.7; O2SAT 97
[2025-05-20 12:00] VITALS: BP 124/75; PULSE 109; RESP 17; TEMP 36.7; O2SAT 97
[2025-05-20 15:20] VITALS: BP 114/72; PULSE 113; RESP 16; TEMP 98
[2025-05-20 16:05] VITALS: BP 124/75; PULSE 113; RESP 16; TEMP 36.7; O2SAT 99
== END 2025-05-20 17:25 | disposition home or self-care (01) | DRG 861 ==
LOC: ER 09:37 → 5WST 11:38 → EDBEDREQTM 11:40 → EDBEDREQ 11:40 → ENRESERV 12:13
PROVIDERS: ADMIT Internal Medicine; ATTEND Internal Medicine
DX: G89.3 Neoplasm related pain (acute) (chronic) (principal); C78.00 Secondary malignant neoplasm of unspecified lung; C62.90 Malignant neoplasm of unspecified testis, unspecified whether descended or undescended; Z85.038 Personal history of other malignant neoplasm of large intestine; Z88.6 Allergy status to analgesic agent; Z90.2 Acquired absence of lung [part of]
CPT/HCPCS: 36415; 71045; 80048; 83880; 84443; 84484; 85025; 93005; 93970; 96374; 96375; 99285; J1171; J1200; J1650; J2270; J2470

== ENCOUNTER 2025-05-22 09:34 | Inpatient (IN) | payer SELFPAY ==
[~2025-05-22] VITALS: Ht 167.6 cm; Wt 77.0 kg
[~2025-05-22 09:34] MED LIST changes: -HYDR-4009 PO; -NEOM28OI53 TOP
[2025-05-22 09:36] VITALS: O2SAT 99
[2025-05-22] MEDS ORDERED: VANCOMYCIN 1G PREMIX 200 ML IV ONE (10:00)
[2025-05-22] MEDS: SODIUM CHLORIDE 0.9% (SEPSIS BOLUS) IV ONE (10:42)
[2025-05-22] MEDS: HYDROMORPHONE HCL/PF 2MG/ML INJ IV ONE (11:55)
[2025-05-22] MEDS: DIPHENHYDRAMINE 50MG/ML VIAL IV ONE (11:55)
[2025-05-22] MEDS: PIPERACILLIN/TAZO 3.375G/50ML 50 ML IV ONE (11:56)
[2025-05-22 12:37] LABS: BASOPHILS % 0.5 % (0.0-2.0); EOSINOPHILS % 0.8 % (0.0-5.0); HEMATOCRIT. 26.1 % (42.0-52.0); HEMOGLOBIN. 8.2 g/dL (14.0-18.0); LYMPHOCYTES % 9.6 % (20.0-50.0); MEAN PLATELET VOLUME 8.3 fl (7.4-10.4); MONOCYTES % 9.4 % (2.0-8.0); NEUTROPHILS % 79.7 % (40.0-76.0); PLATELET 221 x1000/uL (130-400); RED BLOOD CELL COUNT 3.10 mill/uL (4.7-6.1); RED CELL DISTRIBUTION WIDTH 20.9 % (11.6-14.6)
[2025-05-22 12:48] LABS: CREATININE 0.8 mg/dL (0.6-1.3); INR 1.0
[2025-05-22 12:49] LABS: TROPONIN I HIGH SENSITIVITY < 4 ng/L (3.0-53); UREA NITROGEN BLOOD 8 mg/dL (9-23)
[2025-05-22 12:50] LABS: ASPARTATE AMINOTRANSFERASE 17 IU/L (<34)
[2025-05-22 12:51] LABS: BILIRUBIN DIRECT 0.1 mg/dL (<=3.0); BILIRUBIN TOTAL 0.4 mg/dL (0.1-1.0); PROTEIN TOTAL 5.7 g/dL (6.0-8.3)
[2025-05-22 13:41] VITALS: BP 125/82; PULSE 110; RESP 17; TEMP 37.9; O2SAT 99
[2025-05-22] MEDS ORDERED: MULTIVITAMINS,THER W-MINERALS TABLET PO SCH (14:30)
[2025-05-22] MEDS ORDERED: HYDROMORPHONE HCL/PF 2MG/ML INJ IV PRN (14:30)
[2025-05-22] MEDS ORDERED: MAGNESIUM/ALUMINUM HYDROXIDE/SIMETHICONE 30ML UDC PO PRN (14:30)
[2025-05-22] MEDS ORDERED: DOCUSATE SODIUM 100MG CAPSULE PO PRN (14:30)
[2025-05-22] MEDS ORDERED: HYDROCODONE/ACETAMINOPHEN 5/325MG TABLET PO PRN (14:30)
[2025-05-22] MEDS ORDERED: SODIUM CHLORIDE 0.9% 1,000 ML IV SCH (14:30)
[2025-05-22] MEDS ORDERED: IPRATROPIUM/ALBUTEROL 0.5-3(2.5)MG/3ML NEB HHN PRN (14:30)
[2025-05-22] MEDS ORDERED: GUAIFENESIN 200MG/10ML SUGAR FREE UDC PO PRN (14:30)
[2025-05-22] MEDS ORDERED: ONDANSETRON HCL 4MG/2ML INJ IV PRN (14:30)
[2025-05-22] MEDS ORDERED: FERROUS SULFATE 325MG TABLET PO SCH (14:30)
[2025-05-22] MEDS ORDERED: LORAZEPAM 2MG/ML UD SYRINGE IV PRN (14:30)
[2025-05-22] MEDS ORDERED: CLONIDINE 0.1MG TABLET PO PRN (14:30)
[2025-05-22] MEDS ORDERED: ACETAMINOPHEN 325MG TABLET PO PRN ×2 (14:30)
[2025-05-22 16:18] LABS: INFLUENZA TYPE A Presumptive Negative (Pres. Neg.); INFLUENZA TYPE B Presumptive Negative (Pres. Neg.)
[2025-05-22 16:19] LABS: RESPIRATORY SYNCYTIAL VIRUS Not Detected (Not Detectd)
[2025-05-23] MEDS ORDERED: FOLIC ACID 1MG TABLET PO SCH (09:00)
== END 2025-05-22 15:00 | disposition left against medical advice (07) | DRG 720 ==
LOC: ER 10:15 → 6WST 12:51 → EDBEDREQ 13:01 → EDBEDREQTM 13:01 → ENRESERV 13:31
PROVIDERS: ADMIT Internal Medicine; ATTEND Internal Medicine
DX: A41.9 Sepsis, unspecified organism (principal); K92.2 Gastrointestinal hemorrhage, unspecified; C62.90 Malignant neoplasm of unspecified testis, unspecified whether descended or undescended; D50.0 Iron deficiency anemia secondary to blood loss (chronic); E86.0 Dehydration; B08.02 Orf virus disease; R65.20 Severe sepsis without septic shock; L01.00 Impetigo, unspecified; Z20.822 Contact with and (suspected) exposure to COVID-19; L98.9 Disorder of the skin and subcutaneous tissue, unspecified; Z53.29 Procedure and treatment not carried out because of patient's decision for other reasons; Z85.118 Personal history of other malignant neoplasm of bronchus and lung; Z86.711 Personal history of pulmonary embolism; Z86.718 Personal history of other venous thrombosis and embolism; Z88.6 Allergy status to analgesic agent; Z92.21 Personal history of antineoplastic chemotherapy; Z79.899 Other long term (current) drug therapy
CPT/HCPCS: 36415; 71045; 80048; 80076; 83605; 83735; 83880; 84145; 84484; 85025; 87420; 87426; 87804; 93005; 96365; 96375; 99291; A4606; J1171; J1200; J2543; J7030

== ENCOUNTER 2025-05-25 10:35 | Emergency (ER) | payer SELFPAY ==
[~2025-05-25] VITALS: Ht 167.6 cm; Wt 91.0 kg
[2025-05-25 10:51] VITALS: TEMP 36.8; O2SAT 99
[2025-05-25 12:00] LABS: BASOPHILS % 0.5 % (0.0-2.0); EOSINOPHILS % 0.6 % (0.0-5.0); HEMATOCRIT. 28.8 % (42.0-52.0); HEMOGLOBIN. 9.2 g/dL (14.0-18.0); LYMPHOCYTES % 9.6 % (20.0-50.0); MEAN PLATELET VOLUME 8.1 fl (7.4-10.4); MONOCYTES % 8.8 % (2.0-8.0); NEUTROPHILS % 80.5 % (40.0-76.0); PLATELET 246 x1000/uL (130-400); RED BLOOD CELL COUNT 3.48 mill/uL (4.7-6.1); RED CELL DISTRIBUTION WIDTH 21.1 % (11.6-14.6)
[2025-05-25] MEDS: METHYLPREDNISOLONE SOD SUCC 125MG/2ML (ACT-O-VIAL) IV ONE (12:11)
[2025-05-25 12:12] LABS: TROPONIN I HIGH SENSITIVITY 4 ng/L (3.0-53)
[2025-05-25] MEDS: HYDROMORPHONE HCL/PF 2MG/ML INJ IV ONE (12:12)
[2025-05-25] MEDS: DIPHENHYDRAMINE 50MG/ML VIAL IV ONE (12:12)
[2025-05-25 12:13] LABS: CREATININE 0.9 mg/dL (0.6-1.3); UREA NITROGEN BLOOD 15 mg/dL (9-23)
[2025-05-25 12:31] VITALS: BP 136/91; PULSE 106; RESP 16; O2SAT 99
== END 2025-05-25 13:57 | disposition left against medical advice (07) ==
LOC: ER 11:20 → EDBEDREQ 12:46 → EDBEDREQTM 12:46 → ER 13:57 → CMPBEDREQ 05-26 07:58
DX: R07.89 Other chest pain (principal); R06.02 Shortness of breath; R00.0 Tachycardia, unspecified; Z98.890 Other specified postprocedural states; Z79.899 Other long term (current) drug therapy; Z86.718 Personal history of other venous thrombosis and embolism; Z86.711 Personal history of pulmonary embolism; Z88.5 Allergy status to narcotic agent; Z85.47 Personal history of malignant neoplasm of testis; Z88.8 Allergy status to other drugs, medicaments and biological substances; Z88.6 Allergy status to analgesic agent
CPT/HCPCS: 99291; 96374; 96375; 80048; 85025; 84484; 36415; 71045; 93005; J2919; J1200; J1171

== ENCOUNTER 2025-05-27 15:06 | Inpatient (IN) | payer SELFPAY ==
[~2025-05-27] VITALS: Ht 172.7 cm; Wt 92.1 kg
[2025-05-27 15:27] VITALS: O2SAT 99
[2025-05-27] MEDS: DIPHENHYDRAMINE 50MG/ML VIAL IV ONE ×3 (16:45→21:15)
[2025-05-27] MEDS: MORPHINE SULFATE 4 MG/ML INJ (FOR IV/IM USE) IV ONE ×2 (16:45→19:27)
[2025-05-27] MEDS: ASPIRIN 81MG TABLET PO ONE (16:46)
[2025-05-27] MEDS: ONDANSETRON HCL 4MG/2ML INJ IV ONE ×2 (16:46→19:27)
[2025-05-27] MEDS: SODIUM CHLORIDE 0.9% 1,000 ML IV ONE (17:00)
[2025-05-27] MEDS ORDERED: METHYLPREDNISOLONE 40MG/ML INJ IV ONE ×2 (17:30→21:00)
[2025-05-27] MEDS: METHYLPREDNISOLONE SOD SUCC 125MG/2ML (ACT-O-VIAL) IV SCH ×2 (18:00→21:16)
[2025-05-27 18:04] LABS: BASOPHILS % 0.8 % (0.0-2.0); EOSINOPHILS % 0.8 % (0.0-5.0); HEMATOCRIT. 27.4 % (42.0-52.0); HEMOGLOBIN. 8.6 g/dL (14.0-18.0); LYMPHOCYTES % 8.6 % (20.0-50.0); MEAN PLATELET VOLUME 7.9 fl (7.4-10.4); MONOCYTES % 9.4 % (2.0-8.0); NEUTROPHILS % 80.4 % (40.0-76.0); PLATELET 231 x1000/uL (130-400); RED BLOOD CELL COUNT 3.35 mill/uL (4.7-6.1); RED CELL DISTRIBUTION WIDTH 21.1 % (11.6-14.6)
[2025-05-27 18:40] LABS: CREATININE 0.7 mg/dL (0.6-1.3); INR 1.0
[2025-05-27 18:41] LABS: UREA NITROGEN BLOOD 9 mg/dL (9-23)
[2025-05-27 18:42] LABS: ASPARTATE AMINOTRANSFERASE 15 IU/L (<34); TROPONIN I HIGH SENSITIVITY 6 ng/L (3.0-53)
[2025-05-27 18:43] LABS: BILIRUBIN DIRECT 0.1 mg/dL (<=3.0); BILIRUBIN TOTAL 0.4 mg/dL (0.1-1.0); PROTEIN TOTAL 5.9 g/dL (6.0-8.3)
[2025-05-27] MEDS: POTASSIUM CHLORIDE 20MEQ/PACKET PO ONE (19:28)
[2025-05-27] MEDS: ENOXAPARIN 150MG/ML SYR SUBCUT ONE (19:28)
[2025-05-27] MEDS: IOHEXOL-350 100 ML BOTTLE ONE (23:41)
[2025-05-28] VITALS: BP 128/85; PULSE 91; RESP 20; TEMP 36.4; TEMP 36.4736; O2SAT 99
[2025-05-28] MEDS ORDERED: ONDANSETRON HCL 4MG/2ML INJ IV PRN (00:30)
[2025-05-28] MEDS ORDERED: DIPHENHYDRAMINE 25MG CAPSULE PO PRN (00:30)
[2025-05-28] MEDS ORDERED: HYDROMORPHONE HCL/PF 1MG/ML INJ IV PRN (00:30)
[2025-05-28] MEDS ORDERED: NALOXONE HCL 0.4MG/ML VIAL IV PRN (00:45)
[2025-05-28] MEDS: HYDROMORPHONE HCL/PF 2MG/ML INJ IV PRN (00:47)
[2025-05-28 08:00] VITALS: BP 114/93; PULSE 82; RESP 20; TEMP 36.4; O2SAT 98
[2025-05-28] MEDS: ENOXAPARIN 40MG/0.4ML SYR SUBCUT SCH (09:00)
[2025-05-28] MEDS ORDERED: ACETAMINOPHEN 325MG TABLET PO PRN ×2 (11:30)
[2025-05-28] MEDS ORDERED: DOCUSATE SODIUM 100MG CAPSULE PO PRN (11:30)
[2025-05-28] MEDS ORDERED: CLONIDINE 0.1MG TABLET PO PRN (11:30)
[2025-05-28] MEDS ORDERED: IPRATROPIUM/ALBUTEROL 0.5-3(2.5)MG/3ML NEB HHN PRN (11:30)
[2025-05-28 12:00] VITALS: BP 122/82; PULSE 108; RESP 20; TEMP 36.4; O2SAT 98
[2025-05-28] MEDS: DIPHENHYDRAMINE 50MG/ML VIAL IV PRN (13:26)
[2025-05-28 16:00] VITALS: BP 129/92; PULSE 117; RESP 20; TEMP 36.4; O2SAT 96
[2025-05-28 20:00] VITALS: BP 126/82; PULSE 114; RESP 19; TEMP 36.4; O2SAT 97
[2025-05-28] MEDS: ENOXAPARIN 30MG/0.3ML SYR SUBCUT SCH (20:35)
[2025-05-29] VITALS: BP 101/66; PULSE 79; RESP 18; TEMP 36.2; O2SAT 96
[2025-05-29 04:00] VITALS: BP 110/78; PULSE 90; RESP 18; TEMP 36.3; O2SAT 96
[2025-05-29 08:00] VITALS: BP_SYST 124; BP_SYST 131; BP_DIAS 70; BP_DIAS 87; PULSE 66; PULSE 93; RESP 20; TEMP 36.5; TEMP 37.1; O2SAT 97; O2SAT 98
[2025-05-29 09:05] LABS: BASOPHILS % 0.0 % (0.0-2.0); EOSINOPHILS % 0.2 % (0.0-5.0); HEMATOCRIT. 27.6 % (42.0-52.0); HEMOGLOBIN. 8.6 g/dL (14.0-18.0); LYMPHOCYTES % 8.0 % (20.0-50.0); MEAN PLATELET VOLUME 8.6 fl (7.4-10.4); MONOCYTES % 9.7 % (2.0-8.0); NEUTROPHILS % 82.1 % (40.0-76.0); PLATELET 235 x1000/uL (130-400); RED BLOOD CELL COUNT 3.37 mill/uL (4.7-6.1); RED CELL DISTRIBUTION WIDTH 20.5 % (11.6-14.6)
[2025-05-29 09:17] LABS: CREATININE 0.8 mg/dL (0.6-1.3); UREA NITROGEN BLOOD 23 mg/dL (9-23)
[2025-05-29 12:00] VITALS: PULSE 105; RESP 18; TEMP 36.4; O2SAT 98
[2025-05-29] MEDS: SODIUM CHLORIDE 0.9% 1,000 ML IV SCH (13:42)
[2025-05-29] MEDS: POTASSIUM CHLORIDE 20MEQ TABLET SR PO SCH (14:40)
[2025-05-29 16:00] VITALS: BP 120/73; PULSE 86; RESP 20; TEMP 36.1; O2SAT 99
[2025-05-29] MEDS: NEOMY SULF/BACITRAC ZN/POLY OINT 28GM TOP SCH (16:39)
[2025-05-29 20:00] VITALS: BP 128/85; PULSE 85; RESP 20; TEMP 36.4; O2SAT 99
[2025-05-30] VITALS (7 sets, daily range): BP systolic 122–135; BP diastolic 82–90; PULSE 90–121; RESP 18–20; TEMP 36.3–36.7; O2SAT 97–100
[2025-05-30 13:33] LABS: HEMATOCRIT. 29.4 % (42.0-52.0); HEMOGLOBIN. 9.2 g/dL (14.0-18.0); MEAN PLATELET VOLUME 8.2 fl (7.4-10.4); PLATELET 238 x1000/uL (130-400); RED BLOOD CELL COUNT 3.61 mill/uL (4.7-6.1); RED CELL DISTRIBUTION WIDTH 20.6 % (11.6-14.6)
[2025-05-30 20:48] LABS: EOSINOPHILS % MANUAL 2.0 % (0.0-5.0); LYMPHOCYTES % MANUAL 13.0 % (20.0-50.0); MONOCYTES % MANUAL 9.0 % (2.0-8.0); NEUTROPHILS % MANUAL 76.0 % (45.0-75.0); PLATELET ESTIMATE NORMAL
[2025-05-31] VITALS: BP 110/77; PULSE 107; RESP 18; TEMP 36.4; O2SAT 95
[2025-05-31 04:00] VITALS: BP 118/80; PULSE 71; RESP 18; TEMP 36.2; O2SAT 99
[2025-05-31 16:00] VITALS: BP 122/78; PULSE 68; RESP 18; TEMP 36.1; O2SAT 98
[2025-05-31 17:42] VITALS: BP 111/65; PULSE 99; RESP 18; TEMP 97.8
[2025-05-31 20:00] VITALS: BP_SYST 113; BP_SYST 134; BP_DIAS 57; BP_DIAS 82; PULSE 72; PULSE 76; RESP 17; RESP 18; TEMP 36.3; TEMP 36.4; O2SAT 97; O2SAT 98
[2025-06-01] VITALS: BP 126/72; PULSE 68; RESP 18; TEMP 36.1; O2SAT 98
[2025-06-01 04:00] VITALS: BP 129/76; PULSE 72; RESP 18; TEMP 36.2; O2SAT 97
[2025-06-01 06:27] VITALS: BP 129/76; PULSE 72; RESP 18
== END 2025-06-01 18:44 | disposition home or self-care (01) | DRG 145 ==
LOC: ER 15:06 → 8WST 19:09 → EDBEDREQ 19:26 → EDBEDREQTM 19:26 → ENRESERV 20:30 → 6EST 05-31 03:54
PROVIDERS: ADMIT Internal Medicine; ATTEND Internal Medicine
DX: R06.02 Shortness of breath (principal); C78.00 Secondary malignant neoplasm of unspecified lung; K62.5 Hemorrhage of anus and rectum; D50.9 Iron deficiency anemia, unspecified; R07.9 Chest pain, unspecified; E87.6 Hypokalemia; G89.4 Chronic pain syndrome; Z85.118 Personal history of other malignant neoplasm of bronchus and lung; Z85.47 Personal history of malignant neoplasm of testis; Z86.711 Personal history of pulmonary embolism; Z86.718 Personal history of other venous thrombosis and embolism; Z88.6 Allergy status to analgesic agent; Z91.041 Radiographic dye allergy status; Z92.21 Personal history of antineoplastic chemotherapy; Z88.8 Allergy status to other drugs, medicaments and biological substances; Z79.899 Other long term (current) drug therapy
CPT/HCPCS: 36415; 71045; 71275; 80048; 80076; 83880; 84484; 85025; 93005; 93970; 96374; 96375; 99285; J1171; J1200; J1650; J2270; J2405; J2919; J7030; Q9967

== ENCOUNTER 2025-06-04 15:28 | Inpatient (IN) | payer SELFPAY ==
[~2025-06-04] VITALS: Ht 170.2 cm; Wt 93.0 kg
[2025-06-04 15:41] VITALS: O2SAT 98
[2025-06-04] MEDS ORDERED: METHYLPREDNISOLONE SOD SUCC 125MG/2ML (ACT-O-VIAL) IV ONE (16:30)
[2025-06-04] MEDS: HYDROMORPHONE HCL/PF 2MG/ML INJ IV ONE ×2 (17:51→20:58)
[2025-06-04] MEDS: DIPHENHYDRAMINE 50MG/ML VIAL IV PRN (20:13)
[2025-06-04 20:20] LABS: BASOPHILS % 0.4 % (0.0-2.0); EOSINOPHILS % 0.6 % (0.0-5.0); HEMATOCRIT. 24.3 % (42.0-52.0); HEMOGLOBIN. 7.3 g/dL (14.0-18.0); LYMPHOCYTES % 10.1 % (20.0-50.0); MEAN PLATELET VOLUME 8.1 fl (7.4-10.4); MONOCYTES % 11.6 % (2.0-8.0); NEUTROPHILS % 77.3 % (40.0-76.0); PLATELET 206 x1000/uL (130-400); RED BLOOD CELL COUNT 2.94 mill/uL (4.7-6.1); RED CELL DISTRIBUTION WIDTH 21.2 % (11.6-14.6)
[2025-06-04] MEDS: SODIUM CHLORIDE 0.9% 1,000 ML IV ONE (20:20)
[2025-06-04] MEDS: METHYLPREDNISOLONE SOD SUCC 125MG/2ML (ACT-O-VIAL) IV NR (20:23)
[2025-06-04 20:35] LABS: CREATININE 0.8 mg/dL (0.6-1.3); UREA NITROGEN BLOOD 12 mg/dL (9-23)
[2025-06-04 21:40] VITALS: BP 140/88; PULSE 104; RESP 22; TEMP 36.1; O2SAT 98
[2025-06-04 21:45] VITALS: BP 140/88; PULSE 104; RESP 22; TEMP 36.14
[2025-06-04] MEDS ORDERED: ONDANSETRON HCL 4MG/2ML INJ IV PRN (22:15)
[2025-06-04] MEDS ORDERED: ACETAMINOPHEN 325MG TABLET PO PRN (22:15)
[2025-06-04] MEDS ORDERED: MAGNESIUM/ALUMINUM HYDROXIDE/SIMETHICONE 30ML UDC PO PRN (22:15)
[2025-06-04] MEDS ORDERED: CLONIDINE 0.1MG TABLET PO PRN (22:15)
[2025-06-04] MEDS: HYDROCODONE/ACETAMINOPHEN 5/325MG TABLET PO PRN (22:58)
[2025-06-04] MEDS ORDERED: IOHEXOL-350 100 ML BOTTLE ONE (23:13)
[2025-06-04] MEDS ORDERED: NALOXONE HCL 0.4MG/ML VIAL IV PRN (23:15)
[2025-06-04] MEDS: ZOLPIDEM TARTRATE 5MG TABLET PO PRN (23:58)
[2025-06-05] VITALS: BP 119/75; PULSE 100; RESP 20; TEMP 36.4; O2SAT 97
[2025-06-05 04:00] VITALS: BP 124/78; PULSE 68; RESP 18; TEMP 36.8; O2SAT 98
[2025-06-05 08:00] VITALS: BP 128/83; PULSE 82; RESP 20; RESP 22; TEMP 36.8; O2SAT 98
[2025-06-05] MEDS: PANTOPRAZOLE SODIUM 40 MG/VIAL IV SCH (09:00)
[2025-06-05] MEDS: ENOXAPARIN 40MG/0.4ML SYR SUBCUT SCH (09:00)
== END 2025-06-05 13:36 | disposition left against medical advice (07) | DRG 145 ==
LOC: ER 15:28 → 7WST 20:28 → EDBEDREQTM 20:32 → EDBEDREQ 20:32 → ENRESERV 21:12
PROVIDERS: ADMIT Internal Medicine; ATTEND Internal Medicine
DX: R06.02 Shortness of breath (principal); R04.2 Hemoptysis; R05.3 Chronic cough; Z53.29 Procedure and treatment not carried out because of patient's decision for other reasons; Z85.47 Personal history of malignant neoplasm of testis
CPT/HCPCS: 36415; 71045; 71275; 80048; 85025; 93005; 96361; 96374; 96375; 99285; J1171; J1200; J1650; J2470; J2919; J7030; Q9967

== ENCOUNTER 2025-06-15 12:28 | Emergency (ER) | payer SELFPAY ==
[~2025-06-15] VITALS: Ht 172.7 cm; Wt 91.0 kg
[2025-06-15 12:45] VITALS: TEMP 36.7; O2SAT 98
[2025-06-15] MEDS ORDERED: METHYLPREDNISOLONE SOD SUCC 125MG/2ML (ACT-O-VIAL) IV ONE (13:45)
[2025-06-15] MEDS ORDERED: DIPHENHYDRAMINE 50MG/ML VIAL IV ONE (13:45)
[2025-06-15] MEDS ORDERED: ONDANSETRON HCL 4MG/2ML INJ IV ONE (13:45)
[2025-06-15] MEDS: HYDROMORPHONE HCL/PF 2MG/ML INJ IV ONE (15:43)
[2025-06-15] MEDS: DIPHENHYDRAMINE 50MG/ML VIAL IV SCH (15:53)
[2025-06-15] MEDS: ONDANSETRON HCL 4MG/2ML INJ IV SCH (15:54)
[2025-06-15] MEDS: METHYLPREDNISOLONE SOD SUCC 125MG/2ML (ACT-O-VIAL) IV SCH (15:55)
[2025-06-15 17:26] LABS: BASOPHILS % 0.9 % (0.0-2.0); EOSINOPHILS % 0.8 % (0.0-5.0); HEMATOCRIT. 30.4 % (42.0-52.0); HEMOGLOBIN. 9.8 g/dL (14.0-18.0); LYMPHOCYTES % 9.1 % (20.0-50.0); MEAN PLATELET VOLUME 8.1 fl (7.4-10.4); MONOCYTES % 6.3 % (2.0-8.0); NEUTROPHILS % 82.9 % (40.0-76.0); PLATELET 234 x1000/uL (130-400); RED BLOOD CELL COUNT 3.67 mill/uL (4.7-6.1); RED CELL DISTRIBUTION WIDTH 20.0 % (11.6-14.6)
[2025-06-15 17:38] LABS: CREATININE 0.8 mg/dL (0.6-1.3); UREA NITROGEN BLOOD 14 mg/dL (9-23)
[2025-06-15 17:39] LABS: TROPONIN I HIGH SENSITIVITY < 4 ng/L (3.0-53)
[2025-06-15 18:00] VITALS: BP 128/77; PULSE 109; RESP 15; O2SAT 97
== END 2025-06-15 18:12 | disposition left against medical advice (07) ==
LOC: ER 12:28 → EDBEDREQ 15:42 → EDBEDREQTM 15:42 → ER 18:12 → CANBEDREQ 18:19
DX: R07.9 Chest pain, unspecified (principal); R06.02 Shortness of breath; R00.0 Tachycardia, unspecified; R11.0 Nausea; Z88.6 Allergy status to analgesic agent; Z88.8 Allergy status to other drugs, medicaments and biological substances
CPT/HCPCS: 80048; 85025; 84484; 36415; 71045; 93005; 96374; 96375; 99291; J1200; J2919; J2405; J1171; Z7610 ×3; A4606

== ENCOUNTER 2025-06-26 14:15 | Emergency (ER) | payer SELFPAY ==
[~2025-06-26] VITALS: Ht 175.3 cm; Wt 100.0 kg
[2025-06-26 14:18] VITALS: O2SAT 98
[2025-06-26 15:36] VITALS: TEMP 36.8
[2025-06-26] MEDS: HYDROMORPHONE HCL/PF 2MG/ML INJ IV ONE (17:04)
[2025-06-26 17:06] LABS: HEMATOCRIT. 32.5 % (42.0-52.0); HEMOGLOBIN. 10.1 g/dL (14.0-18.0); RED BLOOD CELL COUNT 3.92 mill/uL (4.7-6.1); RED CELL DISTRIBUTION WIDTH 20.9 % (11.6-14.6)
[2025-06-26 17:22] LABS: CREATININE 1.2 mg/dL (0.6-1.3); UREA NITROGEN BLOOD 6 mg/dL (9-23)
[2025-06-26 17:23] LABS: PROTEIN TOTAL 6.0 g/dL (6.0-8.3)
[2025-06-26 17:24] LABS: ASPARTATE AMINOTRANSFERASE 25 IU/L (<34); BILIRUBIN TOTAL 0.5 mg/dL (0.1-1.0)
[2025-06-26 17:32] LABS: PLATELET 179 x1000/uL (130-400)
[2025-06-26 17:33] LABS: MEAN PLATELET VOLUME 7.8 fl (7.4-10.4)
[2025-06-26 17:35] LABS: EOSINOPHILS % MANUAL 1.0 % (0.0-5.0); LYMPHOCYTES % MANUAL 8.0 % (20.0-50.0); MONOCYTES % MANUAL 10.0 % (2.0-8.0); NEUTROPHILS % MANUAL 81.0 % (45.0-75.0); PLATELET ESTIMATE NORMAL
[2025-06-26] MEDS: HYDROMORPHONE HCL/PF 2MG/ML INJ IV SCH (18:56)
[2025-06-26 18:59] VITALS: BP 118/86; PULSE 105; RESP 12; O2SAT 99
== END 2025-06-26 19:10 | disposition home or self-care (01) ==
LOC: ER 14:15
DX: R07.9 Chest pain, unspecified (principal); R06.00 Dyspnea, unspecified; C78.00 Secondary malignant neoplasm of unspecified lung; Z88.5 Allergy status to narcotic agent; Z88.6 Allergy status to analgesic agent; Z88.8 Allergy status to other drugs, medicaments and biological substances
CPT/HCPCS: 80053; 85025; 85379; 36415; 71045; 93005; 96374; 96376; 99285; J1171; Z7610; A4606